=== PATIENT | female | born 1945 | race Caucasian/White ===

== ENCOUNTER 2023-06-12 23:59 | Emergency (ER) | payer OTHER, SELFPAY ==
--- NOTE | ~2023-06-12 | XR_ITS ---
EXAMINATION: XR CHEST CLINICAL INFORMATION: Cough. COMPARISON: None available. TECHNIQUE: Frontal view of the chest was obtained. FINDINGS: No significant abnormality is noted involving the heart, lungs, mediastinum, bony thorax or soft tissues. XR/XR chest 1V IMPRESSION: Unremarkable examination.
[2023-06-13] VITALS (8 sets, daily range): BP systolic 110–137; BP diastolic 39–70; PULSE 70–78; RESP 14–18; TEMP 36.5–37.1; O2SAT 96–98; BMI 51.0
--- NOTE | 2023-06-13 01:32 | ECG_ITS ---
Test Reason : FALL Blood Pressure : / mmHG Vent. Rate : 076 BPM Atrial Rate : 076 BPM P-R Int : 158 ms QRS Dur : 078 ms QT Int : 348 ms P-R-T Axes : 083 012 085 degrees QTc Int : 391 ms Normal sinus rhythm Low voltage QRS Nonspecific T wave abnormality Abnormal ECG When compared with ECG of 16-AUG-2008 07:30, Criteria for Inferior infarct are no longer Present Referred By: Bianca Aleman Electronically Signed By:SADAF MENJIVAR MD
--- NOTE | 2023-06-13 01:34 | ED_ITS ---
HPI - General Adult General Chief complaint: Fall Stated complaint: FALL, SOB Time Seen by Provider: 06/13/23 01:23 Source: patient Mode of arrival: ambulatory Limitations: no limitations History of Present Illness HPI narrative: Patient comes to the emergency room after sustaining a fall. Patient states that she was in her power chair, states that she accidentally slid off, landed on her buttocks. Patient states that she has no pain at all. Patient called 911 because she could not get up. Then she noted that she was a bit short of breath and decided to come to the hospital to get checked out. Patient did not hit her head, did not lose consciousness. Patient states that she does not take any blood thinners. Per patient, Patient has history of CHF and was discharged from [facility] a few days ago. Related Data Allergies Allergy/AdvReac Type Severity Reaction Status Date / Time hydrochlorothiazide Allergy Mild COUGH Unverified 06/13/23 00:20 [Hydrochlorothiazide] Sulfa (Sulfonamide Allergy Mild RASH Unverified 06/13/23 00:20 Antibiotics) lisinopril Allergy Unknown Cough Verified 06/13/23 00:20 Iodinated Contrast Media AdvReac Mild N/V Unverified 06/13/23 00:20 [IV Dye, Iodine Containing] warfarin Allergy Unknown Unknown Uncoded 06/13/23 00:20 Review of Systems 2 Review of Systems: Constitutional : No Weight loss, No Fever, No Chills, No Night Sweats, No Fatigue, No Malaise ENT/Mouth : No Hearing loss, No Ear Pain, No Nasal Congestion, No Sinus Pain, No Hoarseness, No sore throat, No Rhinorrhea, No Swallowing Difficulty Eyes: No Eye Pain, No Swelling, No Redness, No Foreign Body, No Discharge, No Vision Changes Cardiovascular : No Chest Pain, No SOB, No Dyspnea on Exertion, No Orthopnea, No Edema, No Palpitations Respiratory : No Cough, No Sputum, No Wheezing, No Smoke Exposure, complaining of Dyspnea Gastrointestinal : No Nausea, No Vomiting, No Diarrhea, No Constipation, No abdominal Pain, No Hematochezia, No Melena Genitourinary : no irregular bleeding, No Dysuria, No Urinary Frequency, No Hematuria, No Urinary Incontinence, No Urgency, No Flank Pain, No Urinary Flow Changes, No Hesitancy Musculoskeletal : No joint pain, No Myalgias, No Joint Swelling Skin : No Skin Lesions, No rash Neuro : No Weakness, No Numbness, No Paresthesias, No Loss of Consciousness, No Dizziness, No Headache Psych : No Anxiety/Panic, No Depression, No SI/HI/AH/VH, No Social Issues, Heme/Lymph: No Bruising, No Bleeding,No Lymphadenopathy Endocrine : No Polyuria, No Polydipsia, No Temperature Intolerance [facility] Past Medical History Medical History (Updated 06/13/23 @ 04:23 by Bianca Aleman MD) Type 2 diabetes mellitus DVT (deep venous thrombosis) Hypothyroidism Hypertension CHF (congestive heart failure) Social History Social History Smoked in Last 30 Days: No Use of substances other than those prescribed or required for medical reasons: No Advance Directives: No Advance Directives Information Provided: Yes Physical Exam ED Vital Signs: Vital Signs - 24 hr 06/13/23 00:21 06/13/23 01:03 06/13/23 02:00 Temperature 98.8 F 98.0 F Pulse Rate 78 72 76 Respiratory Rate 18 18 18 Blood Pressure 111/39 L 114/39 L 121/52 L Pulse Oximetry 98 98 98 Oxygen Delivery Method Room Air Room Air BMI result Body Mass Index 51.0 Const Other: Appearance: Alert. Oriented X3. No acute distress. Patient seems weak Eyes: Pupils equal, round and reactive to light. ENT: Pharynx normal. Neck: Normal inspection. Neck supple. No lymph nodes noted. No crepitus CVS: Normal heart rate and rhythm. Pulses normal. Normal S1 and S2 Respiratory: No respiratory distress. Breath sounds normal. No Wheezing. No rales Abdomen: Soft and nontender. No rigidity. No distention. Skin: Skin warm and dry. Normal skin color. Normal skin turgor. Extremities: Patient has +2 pitting edema bilaterally lower extremities Neuro: Oriented X 3. No motor deficit. No sensory deficit. Moving all extremities. No slurred speech. CN 2 through 12 grossly intact Psych: calm, cooperative, normal affect Course Course Course Narrative: -patient has no pain from today's fall. -patient states that she has no longer short of breath without any intervention. -all of patient's labs pending Medical Decision Making Medical Decision Making MDM Narrative: My interpretation of labs: Patient's white blood cell count 14.6. Patient has a UTI. Patient was given cefuroxime. Patient's vitals within normal limits, sepsis not suspected. -I was informed by the patient's nurse that it took 2 people to help her to get up from bed and get into the commode. Patient is too weak to do so. -Patient states that since she left [facility] on May 31, she has been feeling weak and gradually getting worse. -I requested records from [facility]. They sent record stating that the last time that the patient was seen with them was in 2020. However, patient has documents with her that she was actually seen this month at [facility]. She might have been seen in an outpatient basis? -patient would benefit from a case management/PT consult -cefuroxime b.i.d. has been ordered Differential Diagnosis Differential Diagnoses: The differential diagnosis associated with the presentation includes (CHF, viral syndrome, anxiety UTI) Admission/Observation Consideration of admission/observation: Escalation of care including admission/observation considered (Case management and physical therapy evaluation pending. Patient under physician observation) Lab Data MDM Lab Attestation statement: I reviewed the patient's lab results. 06/13/23 02:14 06/13/23 02:14 Labs: Lab Results 06/13/23 Range/Units 02:14 WBC 14.6 H (4.8-10.8) X10*3/uL RBC 3.11 L (4.20-5.50) X10*6/uL Hgb 9.3 L (12.0-16.0) g/dl Hct 29.8 L (37.0-47.0) % MCV 95.8 (80.0-98.0) fL MCH 29.9 (27.0-33.0) pg MCHC 31.2 (31.0-35.0) g/dl RDW 19.7 H (11.0-16.0) % Plt Count 177 (160-400) X10*3/uL MPV 8.7 L (9.4-12.3) fL Immature Gran % (Auto) 0.5 H (0.0-0.4) % Neut % (Auto) 79.9 H (45-73) % Lymph % (Auto) 11.2 L (20-40) % [place] % (Auto) 7.7 (2-11) % Eos % (Auto) 0.3 (0-4) % Baso % (Auto) 0.4 (0-2) % Lymph # (Auto) 1.6 (1.2-4.9) X10*3/uL [place] # (Auto) 1.1 (0.1-1.2) X10*3/uL Eos # (Auto) 0.0 (0.0-0.4) X10*3/uL Baso # (Auto) 0.1 (0.0-0.2) X10*3/uL Abs Immat Gran (auto) 0.08 H (0.00-0.03) X10*3/uL Absolute Neuts (auto) 11.7 H (2.0-8.3) x10*3/uL Absolute Nucleated RBC 0.000 (0.0-0.012) X10*3/uL Nucleated RBC % (auto) 0.0 (0.0-0.2) /100WBC Sodium 138 (135-145) mmol/L Potassium 5.1 (3.3-5.1) mmol/L Chloride 106 (96-108) mmol/L Carbon Dioxide 22 (22-29) mmol/L Anion Gap 15 (12-20) BUN 23 H (9-16) mg/dL Creatinine 1.01 (0.5-1.4) mg/dL Estim Creat Clear Calc 52.5 Estimated GFR 53 Random Glucose 178 H (60-115) mg/dL Calcium 10.3 H (8.4-10.2) mg/dL Total Bilirubin 1.3 H (0.0-1.0) mg/dL AST 12 (5-31) U/L ALT 9 (0-31) U/L Alkaline Phosphatase 91 (39-117) U/L B-Natriuretic Peptide 146 H (<100) pg/mL Total Protein 7.1 (6.5-8.0) g/dL Albumin 3.9 (3.5-5.0) g/dL Urine Color Yellow Urine Appearance Turbid Urine pH 5.5 (5.0-9.0) Ur Specific [place] 1.015 (1.005-1.025) Urine Protein Negative (Neg-Trace) mg/dL Urine Glucose (UA) >=1000 H (Negative) mg/dL Urine Ketones Negative (Negative) mg/dL Urine Blood Trace H (Negative) Urine Nitrite Positive H (Negative) Ur Leukocyte Esterase Moderate (2+) H (Negative) Urine RBC 0-2 (0-2) /HPF Urine WBC >50 H (0-5) /HPF Urine WBC Clumps Present Ur Squamous Epith Cells 0-2 (0-2) /HPF Urine Bacteria 4+ (None Seen) Hyaline Casts 0-2 (0-2) /LPF Urine Yeast Present Critical Care Time Critical Care Time Critical Care Time: Yes Total Critical Care Time: 60 Attestation: I have personally provided critical care time. Time includes review of lab data, radiology results, discussion with consultants, and monitoring for potential decompensation. Intervention performed as documented. Discharge Plan Discharge Clinical Impression: Acute UTI, Weakness Patient Disposition: Still a Patient
[2023-06-13 02:19] LABS: Basophils Absolute Auto 0.1 X10*3/uL (0.0-0.2); Basophils Percent Auto 0.4 % (0-2); Eosinophils Percent Auto 0.3 % (0-4); Hematocrit 29.8 % (37.0-47.0); Hemoglobin 9.3 g/dl (12.0-16.0); Imm Gran Abs Auto 0.08 X10*3/uL (0.00-0.03); Imm Gran Pct Auto 0.5 % (0.0-0.4); Lymphocytes Absolute Auto 1.6 X10*3/uL (1.2-4.9); Lymphocytes Percent Auto 11.2 % (20-40); MANUAL DIFF FLAG NO; Mean Corpuscular HGB Conc 31.2 g/dl (31.0-35.0); Mean Corpuscular Hemoglobin 29.9 pg (27.0-33.0); Mean Corpuscular Volume 95.8 fL (80.0-98.0); Mean Platelet Volume 8.7 fL (9.4-12.3); Monocytes Absolute Auto 1.1 X10*3/uL (0.1-1.2); Monocytes Percent Auto 7.7 % (2-11); Neutrophils Absolute Auto 11.7 x10*3/uL (2.0-8.3); Neutrophils Percent Auto 79.9 % (45-73); Platelet Count 177 X10*3/uL (160-400); Red Blood Count 3.11 X10*6/uL (4.20-5.50); Red Cell Distribution Width 19.7 % (11.0-16.0); White Blood Count 14.6 X10*3/uL (4.8-10.8)
[2023-06-13 02:22] LABS: Appearance Urine Turbid; Color Urine Yellow; Glucose Urine UA >=1000 mg/dL (Negative); Leukocyte Esterase Urine Moderate (2+) (Negative); Nitrite Urine Positive (Negative); PH 5.5 (5.0-9.0); Specific Gravity - Urine 1.015 (1.005-1.025); UMIC TRIGGER UACC YES; Urine Blood Trace (Negative); Urine Ketones Negative (Negative); Urine Protein Negative (Neg-Trace)
[2023-06-13 02:48] LABS: B Type Natriuretic Peptide 146 pg/mL (<100)
[2023-06-13 02:59] LABS: Alanine Aminotransferase 9 U/L (0-31); Albumin Level 3.9 g/dL (3.5-5.0); Alkaline Phosphatase 91 U/L (39-117); Anion Gap 15 (12-20); Aspartate Amino Transferase 12 U/L (5-31); Bilirubin Total 1.3 mg/dL (0.0-1.0); Blood Urea Nitrogen 23 mg/dL (9-16); Calcium 10.3 mg/dL (8.4-10.2); Carbon Dioxide 22 mmol/L (22-29); Chloride 106 mmol/L (96-108); Creatinine Clr Calc Pharmacy 52.5; Estimated Glomerular Filt Rate 53; Glucose Random 178 mg/dL (60-115); Potassium 5.1 mmol/L (3.3-5.1); Sodium 138 mmol/L (135-145); Total Protein 7.1 g/dL (6.5-8.0)
[2023-06-13 03:12] LABS: RBC Urine 0-2 /HPF (0-2); UACC Culture Trigger YES; WBC Urine >50 /HPF (0-5)
[2023-06-13 03:13] LABS: Bacteria Urine 4+ (None Seen); Hyaline Casts Urine 0-2 /LPF (0-2); Squamous Epithelial Cell Urine 0-2 /HPF (0-2); WBC Clumps Urine Present
[2023-06-13 10:11] LABS: COVID-19 Test Negative (Negative); IDNOW Serial# 152EDE1D
[2023-06-13] MEDS: cefuroxime axetiL 250 MG TABLET PO (12:15)
--- NOTE | 2023-06-13 12:18 | MHC.EDTECH ---
this tech removed purewick from pt, christiano care was done, brief was placed on pt, pt changed into her personal clothes to be ready for ambulance, rn aware.
--- NOTE | 2023-06-13 13:10 | MHC.CM.ED ---
Received case management consult overnight. Patient came to the ER due to a fall. Work up essentially negative. Physical therapy eval completed. Short term rehab is recommended. Met with patient in regards to discharge planning. Patient lives with 2 roommates, ambulates with a walker and is active with [facility] [id number] [facility]. PCP verified. Patient received 4 Moderna vaccines. Patient is declining STR at this time and feels she can safely return home with services. Maia ROME booked for 1230pm. Referral made to [address] [facility]. Patient, Toya GARCIA and Rosario BRYANT aware. Continue to monitor for d/c needs.
== END 2023-06-13 12:45 | disposition home or self-care (01) ==
PROVIDERS: Physician Assistant Medical; Emergency Provider Emergency Medicine; PCP Internal Medicine
DX: N39.0 Urinary tract infection, site not specified (principal); R53.1 Weakness; R26.2 Difficulty in walking, not elsewhere classified; R06.02 Shortness of breath; Z79.899 Other long term (current) drug therapy; Z11.52 Encounter for screening for COVID-19
CPT/HCPCS: 36415; 51702; 71045; 80053; 81001; 83880; 85025; 87086; 87088; 87186; 87635; 93005; 97162; 99285

== ENCOUNTER → 2023-06-13 01:32 | Outpatient (BNV) | payer OTHER, SELFPAY | PROVIDERS: Emergency Provider Emergency Medicine; PCP Internal Medicine; Visit Provider Internal Medicine Cardiovascular Disease | DX: R94.31 Abnormal electrocardiogram [ECG] [EKG] (principal) | CPT/HCPCS: 93010 ==

== ENCOUNTER 2023-06-17 06:47 | Inpatient (IN) | payer OTHER, SELFPAY ==
[2023-06-17] VITALS (12 sets, daily range): BP systolic 83–150; BP diastolic 34–100; PULSE 58–96; RESP 12–22; TEMP 36.2–36.6; O2SAT 95–100; BMI 53.7
--- NOTE | ~2023-06-17 | CT_ITS ---
EXAMINATION: CT ANGIOGRAM OF THE CHEST WITH AND WITHOUT CONTRAST (CT PULMONARY ANGIOGRAM FOR PE) CLINICAL INFORMATION: Bilateral DVT, dyspnea, lightheadedness. COMPARISON: Chest radiograph earlier today. TECHNIQUE: Prior to contrast administration, noncontrast localization images were obtained. Subsequently, multidetector volumetric imaging was performed from the thoracic inlet to below the diaphragms following the administration of 75 mL Omnipaque 350 intravenous contrast. No contrast reaction reported Sagittal, coronal, and MIP oblique sagittal reformatted images were obtained on the CT workstation, uploaded to PACS, and reviewed. This CT examination was performed using dose optimization techniques as appropriate, variously including the following: *Automated exposure control *Adjustment of mA and/or kV according to patient size (this includes techniques or standardized protocols for targeted exams where dose is matched to indication/reason for exam; i.e. extremities or head) *Use of iterative reconstruction technique Total exam dose-length product 439 mGy-cm FINDINGS: QUALITY OF STUDY/CONTRAST BOLUS: Suboptimal. PULMONARY ARTERIES: Evaluation is limited due to motion. No central pulmonary emboli. No large proximal segmental pulmonary emboli, otherwise evaluation is limited. Mildly enlarged main pulmonary trunk which could be seen with pulmonary hypertension. THORACIC AORTA: No aneurysm. LUNG: No focal consolidation or significant groundglass disease. Mild bibasilar subsegmental atelectasis. Evaluation of pulmonary nodules is limited due to motion, no pulmonary mass. PLEURA: No pleural effusion or pneumothorax. MEDIASTINUM: Mild cardiomegaly. No pericardial effusion. No lymphadenopathy. No evidence of septal bowing or right heart strain. CORONARY ARTERY CALCIFICATION: Coronary calcifications are seen. CHEST WALL/AXILLA: No axillary or internal mammary lymphadenopathy. OSSEOUS STRUCTURES: No acute or suspicious osseous abnormality. Thoracic spondylosis. UPPER ABDOMEN: Nonspecific gastric dilatation. No reflux of contrast into the hepatic veins to suggest elevated right heart pressures. CT/CT angio chest PE protocol IMPRESSION: 1. Limited evaluation secondary to motion. No central pulmonary emboli. No large proximal segmental pulmonary emboli, otherwise evaluation of segmental and subsegmental branches is essentially nondiagnostic. 2. Cardiomegaly with mildly enlarged pulmonary arteries suggesting pulmonary hypertension. 3. No focal consolidation or significant groundglass disease. 4. Nonspecific gastric distention, recommend correlation with postprandial state, gastroparesis and gastric outlet obstruction. VTE: Negative, although evaluation is limited as above.
--- NOTE | ~2023-06-17 | US_ITS ---
EXAMINATION: US VENOUS ULTRASOUND WITH DOPPLER LOWER EXTREMITY, BILATERAL CLINICAL INFORMATION: Swelling, TTP COMPARISON: None available. TECHNIQUE: Ultrasound of the deep veins is performed from the hip to the calf with compression sonography and color and pulse Doppler assessment. Spectral analysis with color-flow imaging is performed. FINDINGS: The exam is limited secondary to patient's body habitus and edema. RIGHT: There is thrombus visualized in the greater saphenous vein to the junction with the superficial femoral vein. Also visualized is partial thrombus in the proximal femoral vein upper. The mid and the distal proximal superficial femoral vein is not visualized. The popliteal vein is thrombosed with no flow seen as well. Right posterior tibial vein is patent. There are vein is limited in evaluation. There is no significant popliteal fossa cyst. LEFT: There is there is thrombus visualized in the common femoral, greater saphenous, superficial, profunda and popliteal veins. The distal superficial femoral vein and calf veins are not seen. There is no significant popliteal fossa cyst. If the patient's symptoms persist, followup ultrasound in 5 days 7 days might be of value to exclude proximal propagation from a non-visualized calf vein. US/US venous duplex LE BI IMPRESSION: Bilateral DVT worse in the left leg as described above.
--- NOTE | ~2023-06-17 | XR_ITS ---
EXAMINATION: XR CHEST CLINICAL INFORMATION: Shortness of breath. COMPARISON: CTA chest 06/17/2023. Chest radiograph 06/17/2023. TECHNIQUE: Frontal view of the chest was obtained. FINDINGS: Stable prominence of the cardiomediastinal silhouette. Low lung volumes. Overlying cardiomediastinal silhouette and prominent epicardial fat pad limits evaluation of the left lower lung. No discrete consolidation. No pleural effusion or pneumothorax. No acute osseous findings. XR/XR chest 1V IMPRESSION: No acute cardiopulmonary findings with the caveat that evaluation of the left lower lobe is somewhat limited due to overlying prominent epicardial fat pads and cardiomediastinal silhouette. Correlation with lateral radiographic view of the chest could be obtained as clinically warranted.
--- NOTE | ~2023-06-17 | XR_ITS ---
EXAMINATION: XR CHEST CLINICAL INFORMATION: Chest pain. COMPARISON: None available. TECHNIQUE: Frontal view of the chest was obtained. FINDINGS: No significant abnormality is noted involving the heart, lungs, mediastinum, bony thorax or soft tissues. XR/XR chest 1V IMPRESSION: Unremarkable chest examination.
[2023-06-17 07:24] LABS: Glucose, Whole Blood 59 mg/dL (60-115)
--- NOTE | 2023-06-17 07:35 | ED_ITS ---
HPI - General Adult General Chief complaint: General Medical Stated complaint: hypoglycemia Time Seen by Provider: 06/17/23 07:27 Source: patient Limitations: no limitations History of Present Illness HPI narrative: This is a 77 years old female with history of diabetes, history of DVT in the past, recently seen in this emergency department for UTI 06/13 discharged on cefuroxime presented to the emergency department with a hypoglycemic episode blood sugar in the field was in the 50s she was given oral dextrose. Onset (ago): hour(s) (2) Radiation: non-radiation Severity: mild Relieving factors: none Exacerbating factors: none Related Data Home Medications Medication Instructions Recorded Confirmed acetaminophen 500 mg tablet 500 mg PO BID PRN Pain, Mild 06/17/23 06/17/23 ammonium lactate 12 % lotion 1 appl topical TID 06/17/23 06/17/23 atorvastatin 40 mg tablet 40 mg PO DAILY 06/17/23 06/17/23 carvedilol 25 mg tablet 25 mg PO BID 06/17/23 06/17/23 cefuroxime axetil 250 mg tablet 250 mg PO BID 06/17/23 06/17/23 empagliflozin 10 mg tablet 10 mg PO DAILY 06/17/23 06/17/23 (Jardiance) furosemide 20 mg tablet 20 mg PO DAILY 06/17/23 06/17/23 gabapentin 100 mg capsule 200 mg PO BID 06/17/23 06/17/23 glimepiride 2 mg tablet 2 mg PO DAILY 06/17/23 06/17/23 levothyroxine 75 mcg tablet 75 mcg PO DAILY@0530 06/17/23 06/17/23 losartan 25 mg tablet 25 mg PO DAILY 06/17/23 06/17/23 nystatin 100,000 unit/gram topical 400,000 unit topical QID 06/17/23 06/17/23 powder silver sulfadiazine 1 % topical 1 appl topical BID 06/17/23 06/17/23 cream (SSD) Allergies Allergy/AdvReac Type Severity Reaction Status Date / Time hydrochlorothiazide Allergy Mild COUGH Verified 06/13/23 04:28 [Hydrochlorothiazide] Sulfa (Sulfonamide Allergy Mild RASH Verified 06/13/23 04:28 Antibiotics) lisinopril Allergy Unknown Cough Verified 06/13/23 04:28 Iodinated Contrast Media AdvReac Mild N/V Verified 06/13/23 04:28 [IV Dye, Iodine Containing] warfarin Allergy Unknown Unknown Uncoded 06/13/23 00:20 Review of Systems 2 ENT: Reports system reviewed and no additional complaints, except as documented Cardiovascular: Cardiovascular: Reports no additional cardiovascular complaints Neurologic: Reports system reviewed and no additional complaints, except as documented [facility] Past Medical History Attestation statement: The following information was validated with the patient. Source: unable to obtain Medical History Type 2 diabetes mellitus DVT (deep venous thrombosis) Hypothyroidism Hypertension CHF (congestive heart failure) Social History Social History Patient Tobacco Use Status: Never used Tobacco Smoked in Last 30 Days: No Use of substances other than those prescribed or required for medical reasons: No Advance Directives: Yes Advance Directives Information Provided: No Advance Directives on File: No Nutrition Risks: No Nutritional Risk Physical Exam ED Vital Signs: Vital Signs - 24 hr 06/17/23 07:20 06/17/23 08:41 06/17/23 10:05 Temperature 97.5 F 97.2 F Pulse Rate 58 63 66 Respiratory Rate 16 12 18 Blood Pressure 83/34 L 96/39 L 94/40 L Pulse Oximetry 98 100 100 Oxygen Delivery Method Room Air Room Air Room Air 06/17/23 11:50 06/17/23 12:20 06/17/23 13:02 Temperature Pulse Rate 63 69 70 Respiratory Rate 13 17 18 Blood Pressure 98/39 L 103/47 L 92/35 L Pulse Oximetry 100 100 98 Oxygen Delivery Method Room Air Room Air BMI result Body Mass Index 53.7 Const General: cooperative, no acute distress and well developed Nutritional Appearance: obese Orientation/consciousness: patient oriented x3 HENMT Head: Yes normal to inspection General nose exam: Normal external nose present Face and sinus: Yes normal facial exam Mouth: Normal oral and palatal mucosa present Neck Neck: Yes normal visual inspection and Yes full ROM Chest Chest palpation & inspection: normal inspection of the chest Resp Effort & Inspection: normal respiratory effort Auscultation: clear to auscultation bilaterally Cardio Jugular venous distension: no JVD Rate: regular rate Rhythm: regular rhythm GI Inspection: Yes normal to inspection Palpation (GI): Soft to palpation, not firm, nontender and no guarding Auscultation: normal bowel sounds Skin General skin exam: no rashes or lesions noted and elasticity normal Lesions: no lesions Rashes: no rashes Neuro General: patient oriented x3 Course Reevaluation(s) Reevaluation #1: Blood pressure noted however I do not think a she a sepsis this patient she has a normal lactic acid she has no fever the urine actually is better today than before she has been having some diarrhea that could explain the low BP Time: 11:34 Medications Administered Discontinued Medications Generic Name Dose Route Start Last Admin Trade Name Freq PRN Reason Stop Dose Admin Hydrocortisone Sodium Succinate 200 mg 06/17/23 15:07 06/17/23 15:34 Hydrocortisone Sod Succ/Pf 100 Mg Vial IVPUSH 06/17/23 15:08 200 mg ONCE ONE Administration Sodium Chloride 1,000 mls @ 999 mls/hr 06/17/23 07:30 06/17/23 08:54 Ns IVCONT 06/17/23 08:30 Infused .Q1H1M SUSAN Infusion Sodium Chloride 1,000 mls @ 999 mls/hr 06/17/23 08:30 06/17/23 10:27 Ns IVCONT 06/17/23 09:30 Infused .Q1H1M SUSAN Infusion Sodium Chloride 1,000 mls @ 500 mls/hr 06/17/23 11:30 06/17/23 11:54 Ns IVCONT 06/17/23 13:29 500 mls/hr .Q2H SUSAN Administration Albumin Human 100 mls @ 125 mls/hr 06/17/23 13:15 06/17/23 15:34 [place]bum[place] 25 % IV 06/17/23 15:02 125 mls/hr Q1H SUSAN Administration Medical Decision Making Medical Decision Making [facility] Narrative: Patient presented with hyperglycemia episode, found to be hypotensive at arrival will obtain labs will administer fluid bolus Differential Diagnosis Differential Diagnoses: The differential diagnosis associated with the presentation includes Dehydration/see me/sepsis (which is unlikely given the fact the patient has no fever) Admission/Observation Consideration of admission/observation: Escalation of care including admission/observation considered Consult Healthcare Provider Management of the patient was discussed with: Hospitalist Lab Data MDM Lab Attestation statement: I reviewed the patient's lab results. 06/17/23 12:45 06/17/23 07:38 Labs: Lab Results 06/17/23 06/17/23 06/17/23 Range/Units 07:21 07:38 07:48 WBC 12.0 H (4.8-10.8) X10*3/uL RBC 2.94 L (4.20-5.50) X10*6/uL Hgb 8.5 L (12.0-16.0) g/dl Hct 27.3 L (37.0-47.0) % MCV 92.9 (80.0-98.0) fL MCH 28.9 (27.0-33.0) pg MCHC 31.1 (31.0-35.0) g/dl RDW 18.9 H (11.0-16.0) % Plt Count 246 D (160-400) X10*3/uL MPV 9.1 L (9.4-12.3) fL Immature Gran % (Auto) 0.7 H (0.0-0.4) % Neut % (Auto) 77.2 H (45-73) % Lymph % (Auto) 11.7 L (20-40) % [place] % (Auto) 9.1 (2-11) % Eos % (Auto) 0.9 (0-4) % Baso % (Auto) 0.4 (0-2) % Lymph # (Auto) 1.4 (1.2-4.9) X10*3/uL [place] # (Auto) 1.1 (0.1-1.2) X10*3/uL Eos # (Auto) 0.1 (0.0-0.4) X10*3/uL Baso # (Auto) 0.1 (0.0-0.2) X10*3/uL Abs Immat Gran (auto) 0.08 H (0.00-0.03) X10*3/uL Absolute Neuts (auto) 9.3 H (2.0-8.3) x10*3/uL Absolute Nucleated RBC 0.000 (0.0-0.012) X10*3/uL Nucleated RBC % (auto) 0.0 (0.0-0.2) /100WBC PT 14.2 H (11.1-13.3) SEC INR 1.2 H (0.9-1.1) aPTT Heparin Protocol (53-77.9) SEC Sodium 133 L (135-145) mmol/L Potassium 4.7 (3.3-5.1) mmol/L Chloride 105 (96-108) mmol/L Carbon Dioxide 23 (22-29) mmol/L Anion Gap 10 L (12-20) BUN 37 H (9-16) mg/dL Creatinine 1.40 (0.5-1.4) mg/dL Estim Creat Clear Calc 40.3 Estimated GFR 36 POC Glucose 59 L* 81 (60-115) mg/dL Random Glucose 67 (60-115) mg/dL Lactic Acid 1.0 (0.5-2.0) mmol/L Calcium 9.7 (8.4-10.2) mg/dL Total Bilirubin 0.7 (0.0-1.0) mg/dL AST 56 H (5-31) U/L ALT 32 H (0-31) U/L Alkaline Phosphatase 103 (39-117) U/L Troponin I High Sens < 2.7 (<3.5-17.0) ng/L B-Natriuretic Peptide (<100) pg/mL Total Protein 6.3 L (6.5-8.0) g/dL Albumin 2.9 L (3.5-5.0) g/dL Urine Color Urine Appearance Urine pH (5.0-9.0) Ur Specific [place] (1.005-1.025) Urine Protein (Neg-Trace) mg/dL Urine Glucose (UA) (Negative) mg/dL Urine Ketones (Negative) mg/dL Urine Blood (Negative) Urine Nitrite (Negative) Ur Leukocyte Esterase (Negative) Urine RBC (0-2) /HPF Urine WBC (0-5) /HPF Ur Squamous Epith Cells (0-2) /HPF Urine Bacteria (None Seen) Hyaline Casts (0-2) /LPF Urine Yeast Stool Occult Blood (NEGATIVE) C. difficile Tox B Gene (Negative) 06/17/23 06/17/23 06/17/23 Range/Units 09:17 09:21 09:25 WBC (4.8-10.8) X10*3/uL RBC (4.20-5.50) X10*6/uL Hgb (12.0-16.0) g/dl Hct (37.0-47.0) % MCV (80.0-98.0) fL MCH (27.0-33.0) pg MCHC (31.0-35.0) g/dl RDW (11.0-16.0) % Plt Count (160-400) X10*3/uL MPV (9.4-12.3) fL Immature Gran % (Auto) (0.0-0.4) % Neut % (Auto) (45-73) % Lymph % (Auto) (20-40) % [place] % (Auto) (2-11) % Eos % (Auto) (0-4) % Baso % (Auto) (0-2) % Lymph # (Auto) (1.2-4.9) X10*3/uL [place] # (Auto) (0.1-1.2) X10*3/uL Eos # (Auto) (0.0-0.4) X10*3/uL Baso # (Auto) (0.0-0.2) X10*3/uL Abs Immat Gran (auto) (0.00-0.03) X10*3/uL Absolute Neuts (auto) (2.0-8.3) x10*3/uL Absolute Nucleated RBC (0.0-0.012) X10*3/uL Nucleated RBC % (auto) (0.0-0.2) /100WBC PT (11.1-13.3) SEC INR (0.9-1.1) aPTT Heparin Protocol (53-77.9) SEC Sodium (135-145) mmol/L Potassium (3.3-5.1) mmol/L Chloride (96-108) mmol/L Carbon Dioxide (22-29) mmol/L Anion Gap (12-20) BUN (9-16) mg/dL Creatinine (0.5-1.4) mg/dL Estim Creat Clear Calc Estimated GFR POC Glucose (60-115) mg/dL Random Glucose (60-115) mg/dL Lactic Acid (0.5-2.0) mmol/L Calcium (8.4-10.2) mg/dL Total Bilirubin (0.0-1.0) mg/dL AST (5-31) U/L ALT (0-31) U/L Alkaline Phosphatase (39-117) U/L Troponin I High Sens (<3.5-17.0) ng/L B-Natriuretic Peptide (<100) pg/mL Total Protein (6.5-8.0) g/dL Albumin (3.5-5.0) g/dL Urine Color Yellow Urine Appearance Clear Urine pH 5.0 (5.0-9.0) Ur Specific [place] 1.015 (1.005-1.025) Urine Protein Negative (Neg-Trace) mg/dL Urine Glucose (UA) 500 H (Negative) mg/dL Urine Ketones Negative (Negative) mg/dL Urine Blood Negative (Negative) Urine Nitrite Negative (Negative) Ur Leukocyte Esterase Negative (Negative) Urine RBC 0-2 (0-2) /HPF Urine WBC 0-5 (0-5) /HPF Ur Squamous Epith Cells 0-2 (0-2) /HPF Urine Bacteria None Seen (None Seen) Hyaline Casts 3-5 (0-2) /LPF Urine Yeast Present Stool Occult Blood NEGATIVE (NEGATIVE) C. difficile Tox B Gene NEGATIVE (Negative) 06/17/23 06/17/23 06/17/23 Range/Units 10:06 12:45 12:51 WBC 12.3 H (4.8-10.8) X10*3/uL RBC 2.88 L (4.20-5.50) X10*6/uL Hgb 8.3 L (12.0-16.0) g/dl Hct 26.8 L (37.0-47.0) % MCV 93.1 (80.0-98.0) fL MCH 28.8 (27.0-33.0) pg MCHC 31.0 (31.0-35.0) g/dl RDW 18.8 H (11.0-16.0) % Plt Count 226 (160-400) X10*3/uL MPV 9.4 (9.4-12.3) fL Immature Gran % (Auto) 0.7 H (0.0-0.4) % Neut % (Auto) 74.0 H (45-73) % Lymph % (Auto) 14.0 L (20-40) % [place] % (Auto) 9.9 (2-11) % Eos % (Auto) 1.1 (0-4) % Baso % (Auto) 0.3 (0-2) % Lymph # (Auto) 1.7 (1.2-4.9) X10*3/uL [place] # (Auto) 1.2 (0.1-1.2) X10*3/uL Eos # (Auto) 0.1 (0.0-0.4) X10*3/uL Baso # (Auto) 0.0 (0.0-0.2) X10*3/uL Abs Immat Gran (auto) 0.08 H (0.00-0.03) X10*3/uL Absolute Neuts (auto) 9.1 H (2.0-8.3) x10*3/uL Absolute Nucleated RBC 0.000 (0.0-0.012) X10*3/uL Nucleated RBC % (auto) 0.0 (0.0-0.2) /100WBC PT (11.1-13.3) SEC INR (0.9-1.1) aPTT Heparin Protocol (53-77.9) SEC Sodium (135-145) mmol/L Potassium (3.3-5.1) mmol/L Chloride (96-108) mmol/L Carbon Dioxide (22-29) mmol/L Anion Gap (12-20) BUN (9-16) mg/dL Creatinine (0.5-1.4) mg/dL Estim Creat Clear Calc Estimated GFR POC Glucose 113 82 (60-115) mg/dL Random Glucose (60-115) mg/dL Lactic Acid (0.5-2.0) mmol/L Calcium (8.4-10.2) mg/dL Total Bilirubin (0.0-1.0) mg/dL AST (5-31) U/L ALT (0-31) U/L Alkaline Phosphatase (39-117) U/L Troponin I High Sens (<3.5-17.0) ng/L B-Natriuretic Peptide 119 H (<100) pg/mL Total Protein (6.5-8.0) g/dL Albumin (3.5-5.0) g/dL Urine Color Urine Appearance Urine pH (5.0-9.0) Ur Specific [place] (1.005-1.025) Urine Protein (Neg-Trace) mg/dL Urine Glucose (UA) (Negative) mg/dL Urine Ketones (Negative) mg/dL Urine Blood (Negative) Urine Nitrite (Negative) Ur Leukocyte Esterase (Negative) Urine RBC (0-2) /HPF Urine WBC (0-5) /HPF Ur Squamous Epith Cells (0-2) /HPF Urine Bacteria (None Seen) Hyaline Casts (0-2) /LPF Urine Yeast Stool Occult Blood (NEGATIVE) C. difficile Tox B Gene (Negative) 06/17/23 Range/Units 14:54 WBC (4.8-10.8) X10*3/uL RBC (4.20-5.50) X10*6/uL Hgb (12.0-16.0) g/dl Hct (37.0-47.0) % MCV (80.0-98.0) fL MCH (27.0-33.0) pg MCHC (31.0-35.0) g/dl RDW (11.0-16.0) % Plt Count (160-400) X10*3/uL MPV (9.4-12.3) fL Immature Gran % (Auto) (0.0-0.4) % Neut % (Auto) (45-73) % Lymph % (Auto) (20-40) % [place] % (Auto) (2-11) % Eos % (Auto) (0-4) % Baso % (Auto) (0-2) % Lymph # (Auto) (1.2-4.9) X10*3/uL [place] # (Auto) (0.1-1.2) X10*3/uL Eos # (Auto) (0.0-0.4) X10*3/uL Baso # (Auto) (0.0-0.2) X10*3/uL Abs Immat Gran (auto) (0.00-0.03) X10*3/uL Absolute Neuts (auto) (2.0-8.3) x10*3/uL Absolute Nucleated RBC (0.0-0.012) X10*3/uL Nucleated RBC % (auto) (0.0-0.2) /100WBC PT 13.5 H (11.1-13.3) SEC INR 1.1 (0.9-1.1) aPTT Heparin Protocol 29.7 L (53-77.9) SEC Sodium (135-145) mmol/L Potassium (3.3-5.1) mmol/L Chloride (96-108) mmol/L Carbon Dioxide (22-29) mmol/L Anion Gap (12-20) BUN (9-16) mg/dL Creatinine (0.5-1.4) mg/dL Estim Creat Clear Calc Estimated GFR POC Glucose (60-115) mg/dL Random Glucose (60-115) mg/dL Lactic Acid (0.5-2.0) mmol/L Calcium (8.4-10.2) mg/dL Total Bilirubin (0.0-1.0) mg/dL AST (5-31) U/L ALT (0-31) U/L Alkaline Phosphatase (39-117) U/L Troponin I High Sens (<3.5-17.0) ng/L B-Natriuretic Peptide (<100) pg/mL Total Protein (6.5-8.0) g/dL Albumin (3.5-5.0) g/dL Urine Color Urine Appearance Urine pH (5.0-9.0) Ur Specific [place] (1.005-1.025) Urine Protein (Neg-Trace) mg/dL Urine Glucose (UA) (Negative) mg/dL Urine Ketones (Negative) mg/dL Urine Blood (Negative) Urine Nitrite (Negative) Ur Leukocyte Esterase (Negative) Urine RBC (0-2) /HPF Urine WBC (0-5) /HPF Ur Squamous Epith Cells (0-2) /HPF Urine Bacteria (None Seen) Hyaline Casts (0-2) /LPF Urine Yeast Stool Occult Blood (NEGATIVE) C. difficile Tox B Gene (Negative) Independent Interpretation I performed an independent interpretation of an: EKG Critical Care Time Critical Care Time Critical Care Time: Yes Total Critical Care Time: 60 Attestation: hypotensions multiple fluids bolus,hypoglycemia Discharge Plan Discharge Clinical Impression: Hypoglycemia Hypotension Qualifiers: Hypotension type: unspecified hypotension type Qualified Code(s): I95.9 - Hypotension, unspecified Patient Disposition: Admitted As Inpatient
[2023-06-17] MEDS: 0.9 % Sodium Chloride 1,000 ML 999 ML IVCONT ×2 (07:38→08:54)
[2023-06-17 07:46] LABS: MANUAL DIFF FLAG NO
[2023-06-17 07:49] LABS: Basophils Absolute Auto 0.1 X10*3/uL (0.0-0.2); Basophils Percent Auto 0.4 % (0-2); Eosinophils Absolute Auto 0.1 X10*3/uL (0.0-0.4); Eosinophils Percent Auto 0.9 % (0-4); Hematocrit 27.3 % (37.0-47.0); Hemoglobin 8.5 g/dl (12.0-16.0); Imm Gran Abs Auto 0.08 X10*3/uL (0.00-0.03); Imm Gran Pct Auto 0.7 % (0.0-0.4); Lymphocytes Absolute Auto 1.4 X10*3/uL (1.2-4.9); Lymphocytes Percent Auto 11.7 % (20-40); Mean Corpuscular HGB Conc 31.1 g/dl (31.0-35.0); Mean Corpuscular Hemoglobin 28.9 pg (27.0-33.0); Mean Corpuscular Volume 92.9 fL (80.0-98.0); Mean Platelet Volume 9.1 fL (9.4-12.3); Monocytes Absolute Auto 1.1 X10*3/uL (0.1-1.2); Monocytes Percent Auto 9.1 % (2-11); Neutrophils Absolute Auto 9.3 x10*3/uL (2.0-8.3); Neutrophils Percent Auto 77.2 % (45-73); Platelet Count 246 X10*3/uL (160-400); Red Blood Count 2.94 X10*6/uL (4.20-5.50); Red Cell Distribution Width 18.9 % (11.0-16.0)
[2023-06-17 07:51] LABS: Glucose, Whole Blood 81 mg/dL (60-115)
[2023-06-17 07:54] LABS: INTERNATIONAL NORM RATIO 1.2 (0.9-1.1); Prothrombin Time 14.2 SEC (11.1-13.3)
[2023-06-17 08:02] LABS: Alanine Aminotransferase 32 U/L (0-31); Albumin Level 2.9 g/dL (3.5-5.0); Alkaline Phosphatase 103 U/L (39-117); Anion Gap 10 (12-20); Aspartate Amino Transferase 56 U/L (5-31); Bilirubin Total 0.7 mg/dL (0.0-1.0); Blood Urea Nitrogen 37 mg/dL (9-16); Calcium 9.7 mg/dL (8.4-10.2); Carbon Dioxide 23 mmol/L (22-29); Chloride 105 mmol/L (96-108); Creatinine Clr Calc Pharmacy 40.3; Estimated Glomerular Filt Rate 36; Glucose Random 67 mg/dL (60-115); Potassium 4.7 mmol/L (3.3-5.1); Sodium 133 mmol/L (135-145); Total Protein 6.3 g/dL (6.5-8.0)
[2023-06-17 08:09] LABS: Troponin-I High Sensitivity < 2.7 ng/L (<3.5-17.0)
[2023-06-17 09:31] LABS: Appearance Urine Clear; Color Urine Yellow; Glucose Urine UA 500 mg/dL (Negative); Leukocyte Esterase Urine Negative (Negative); Nitrite Urine Negative (Negative); Specific Gravity - Urine 1.015 (1.005-1.025); Urine Blood Negative (Negative); Urine Ketones Negative (Negative); Urine Protein Negative (Neg-Trace)
[2023-06-17 09:36] LABS: OBS Int Ctl Valid YES; OBS1 NEGATIVE (NEGATIVE)
[2023-06-17 09:43] LABS: Bacteria Urine None Seen (None Seen); RBC Urine 0-2 /HPF (0-2); Squamous Epithelial Cell Urine 0-2 /HPF (0-2); WBC Urine 0-5 /HPF (0-5)
[2023-06-17 10:14] LABS: Glucose, Whole Blood 113 mg/dL (60-115)
[2023-06-17 10:55] LABS: CDiff Gene PCR NEGATIVE (Negative)
--- NOTE | 2023-06-17 11:32 | ECG_ITS ---
Test Reason : CHEST PAIN Blood Pressure : / mmHG Vent. Rate : 071 BPM Atrial Rate : 071 BPM P-R Int : 168 ms QRS Dur : 068 ms QT Int : 362 ms P-R-T Axes : 077 010 066 degrees QTc Int : 393 ms Artifact in tracing Normal sinus rhythm Low voltage QRS Nonspecific ST and T wave abnormality Borderline ECG When compared with ECG of 13-JUN-2023 02:26, No significant changes seen Referred By: Danny Figueroa Electronically Signed By:WAYNE SHEPPARD
[2023-06-17] MEDS: 0.9 % Sodium Chloride 1,000 ML 500 ML IVCONT (11:54)
--- NOTE | 2023-06-17 12:35 | PHA.MEDREC ---
Pharmacy Consult ? Medication Reconciliation Pharmacy has completed the medication reconciliation. Patient was a good historian. OF NOTE: her lasix and glimepiride are filled as BID but she only takes them once in the morning. Patient also stated she has been stopped on metformin and Xarelto
[2023-06-17 12:57] LABS: Glucose, Whole Blood 82 mg/dL (60-115)
--- NOTE | 2023-06-17 13:01 | PC.NURSE ---
u/s at bedside to complete venous duplex
[2023-06-17 13:04] LABS: MANUAL DIFF FLAG NO
[2023-06-17 13:05] LABS: Basophils Percent Auto 0.3 % (0-2); Eosinophils Absolute Auto 0.1 X10*3/uL (0.0-0.4); Eosinophils Percent Auto 1.1 % (0-4); Hematocrit 26.8 % (37.0-47.0); Hemoglobin 8.3 g/dl (12.0-16.0); Imm Gran Abs Auto 0.08 X10*3/uL (0.00-0.03); Imm Gran Pct Auto 0.7 % (0.0-0.4); Lymphocytes Absolute Auto 1.7 X10*3/uL (1.2-4.9); Mean Corpuscular Hemoglobin 28.8 pg (27.0-33.0); Mean Corpuscular Volume 93.1 fL (80.0-98.0); Mean Platelet Volume 9.4 fL (9.4-12.3); Monocytes Absolute Auto 1.2 X10*3/uL (0.1-1.2); Monocytes Percent Auto 9.9 % (2-11); Neutrophils Absolute Auto 9.1 x10*3/uL (2.0-8.3); Platelet Count 226 X10*3/uL (160-400); Red Blood Count 2.88 X10*6/uL (4.20-5.50); Red Cell Distribution Width 18.8 % (11.0-16.0); White Blood Count 12.3 X10*3/uL (4.8-10.8)
[2023-06-17 13:24] LABS: B Type Natriuretic Peptide 119 pg/mL (<100)
--- NOTE | 2023-06-17 14:01 | P.HPHOSP_ITS ---
History of Present Illness Date of Service: 06/17/23 Attending physician on admission: Heriberto Arango Chief Complaint: hypoglycemia 77 year old female with history non insulin dependent type 2 diabetes, htn, unspecified CHF, hx dvt (s/p IVC filter previously on xarelto dc'd 3 weeks ago d/t gi bleed), hypothyroidism presented to the ED earlier today for evaluation of hypoglyemia. Was seen in our ED on 06/13 diagnosed with UTI and prescribed cefuroxime (UC grew ecoli sensitive to ctx). States last A1c was 6.1% and had glucose of 46 this am, given oral dextrose by EMS and transferred to ED. She reports was hospitalized at [facility] about 3 weeks ago with LGIB, required 8 units prbc transfusion, and underwent colonoscopy. Pt reports AVM found. Records requested but unavailable at time of exam. No further GI bleeding per patient since discharge. Did have recurrence of diarrhea x4 this morning while in ED. Reports dyspnea sitting up and with exertion, but no orthopnea. Also reporting lightheadedness and mild chest discomfort, but no palpitations. In ED, initially hypotensive and bp remains soft despite 2.5L IV NS with bp on admission 92/35. There is a leukocytosis 12.3, H/H 8.3/26.8%. Creat 1.4, baseline 1.0. BUN 37, sodium 131 lytes otherwise normal. AST 56, ALT 32. Trop below detectable limites, BNP 119. albumin 2.9. UA unremarkable. Stool occult blood negative. Cdiff negative. CXR unremarkable. Venous duplex pending. EKF shows NSR, rate [address]/twave abn, no amrcos/depression. Review of Systems 2 Review of Systems: General: No fevers, malaise, unintentional weight loss HEENT: No blurred vision, diplopia. No sore throat, nasal congestion, rhinorrhea, sinus pain, ear pain Cardiovascular: +chest pain. No palpitations, or leg edema Respiratory: +dyspnea. No wheezing, cough GI: No abdominal pain, nausea, vomiting, diarrhea, constipation, melena, hematochezia : No dysuria, hematuria, increased urinary frequency, decreased urinary output MSK: No myalgia, back pain Neuro: No headaches, weakness, paresthesias Skin: No rashes or lesions [facility] Medical History Type 2 diabetes mellitus DVT (deep venous thrombosis) Hypothyroidism Hypertension CHF (congestive heart failure) Social History Patient Tobacco Use Status: Never used Tobacco Smoked in Last 30 Days: No Use of substances other than those prescribed or required for medical reasons: No Advance Directives: Yes Advance Directives Information Provided: No Advance Directives on File: No Nutrition Risks: No Nutritional Risk Meds Allergies Allergy/AdvReac Type Severity Reaction Status Date / Time hydrochlorothiazide Allergy Mild COUGH Verified 06/13/23 04:28 [Hydrochlorothiazide] Sulfa (Sulfonamide Allergy Mild RASH Verified 06/13/23 04:28 Antibiotics) lisinopril Allergy Unknown Cough Verified 06/13/23 04:28 Iodinated Contrast Media AdvReac Mild N/V Verified 06/13/23 04:28 [IV Dye, Iodine Containing] warfarin Allergy Unknown Unknown Uncoded 06/13/23 00:20 Active Medications: Current Medications Acetaminophen (Acetaminophen 325 Mg Tablet) 650 mg PO Q6H PRN PRN Reason: Pain, Mild (Pain Scale 1-3) Dextrose (Dextrose 50 % 25 Gm/50 Ml Syringe) 25 gm IVPUSH Q15M PRN; Protocol PRN Reason: per Hypoglycemia Standing Ord. Enoxaparin Sodium (Enoxaparin Sodium 40 Mg/0.4 Ml Syringe) 40 mg SUBCUT Q24H [facility] Glucose (Glucose Gel 15 Gm Gel..Gram.) 15 gm PO Q15M PRN; Protocol PRN Reason: per Hypoglycemia Standing Ord. Albumin Human (Kedbumin 25 %) 100 mls @ 125 mls/hr IV Q1H [facility] Stop: 06/17/23 15:02 Insulin Human Lispro (Insulin Lispro 100 Unit/Ml 3 Ml Vial) 0 unit SUBCUT QIDACHS [facility]; Protocol Ondansetron HCl (Ondansetron Hcl 4 Mg/2 Ml Vial) 4 mg IVPUSH Q8H PRN PRN Reason: Nausea and Vomiting Senna (Sennosides 8.6 Mg Tablet) 17.2 mg PO BEDTIME PRN PRN Reason: Constipation Sodium Chloride (0.9 % Sodium Chloride Flush 3 Ml Syringe) 3 ml IVFLUSH QSHIFT [facility] Home Medications Medication Instructions Recorded Confirmed Last Taken Type acetaminophen 500 mg tablet 500 mg PO BID PRN Pain, Mild 06/17/23 06/17/23 Unknown History ammonium lactate 12 % lotion 1 appl topical TID 06/17/23 06/17/23 Unknown History atorvastatin 40 mg tablet 40 mg PO DAILY 06/17/23 06/17/23 Unknown History carvedilol 25 mg tablet 25 mg PO BID 06/17/23 06/17/23 Unknown History cefuroxime axetil 250 mg tablet 250 mg PO BID 06/17/23 06/17/23 Unknown History empagliflozin 10 mg tablet 10 mg PO DAILY 06/17/23 06/17/23 Unknown History (Jardiance) furosemide 20 mg tablet 20 mg PO DAILY 06/17/23 06/17/23 Unknown History gabapentin 100 mg capsule 200 mg PO BID 06/17/23 06/17/23 Unknown History glimepiride 2 mg tablet 2 mg PO DAILY 06/17/23 06/17/23 Unknown History levothyroxine 75 mcg tablet 75 mcg PO DAILY@0530 06/17/23 06/17/23 Unknown History losartan 25 mg tablet 25 mg PO DAILY 06/17/23 06/17/23 Unknown History nystatin 100,000 unit/gram topical 400,000 unit topical QID 06/17/23 06/17/23 Unknown History powder silver sulfadiazine 1 % topical 1 appl topical BID 06/17/23 06/17/23 Unknown History cream (SSD) Physical Exam 2 Vital Signs and Narrative: Vital Signs: Last Vital Signs Temp 97.2 F 06/17/23 08:41 Pulse 70 06/17/23 13:02 Resp 18 06/17/23 13:02 BP 92/35 L 06/17/23 13:02 Pulse Ox 98 06/17/23 13:02 O2 Del Method Room Air 06/17/23 12:20 BMI result Body Mass Index 53.7 Constitutional - Awake and Alert, No apparent distress Eyes - PERRLA, EOMI Cardiovascular - S1S2, RRR, 2+ ble edema Respiratory - Normal lung expansion, Normal respiratory effort, No respiratory distress, CTA bilaterally Gastrointestinal - NT / ND; +BS; No rebound or guarding Extremities - bilateral calf swelling with mild erythema posterior rle and 2+ edema Skin - Warm/Dry Neurological - Alert & oriented x3 Psychological - Appropriate affect Results Labs 06/17/23 12:45 06/17/23 07:38 Labs: Laboratory Results - last 24 hr 06/17/23 06/17/23 06/17/23 07:21 07:38 07:48 MCV 92.9 MCH 28.9 MCHC 31.1 RDW 18.9 H Plt Count 246 D MPV 9.1 L Immature Gran % (Auto) 0.7 H Neut % (Auto) 77.2 H Lymph % (Auto) 11.7 L [place] % (Auto) 9.1 Eos % (Auto) 0.9 Baso % (Auto) 0.4 Lymph # (Auto) 1.4 [place] # (Auto) 1.1 Eos # (Auto) 0.1 Baso # (Auto) 0.1 Abs Immat Gran (auto) 0.08 H Absolute Neuts (auto) 9.3 H Absolute Nucleated RBC 0.000 Nucleated RBC % (auto) 0.0 PT 14.2 H INR 1.2 H Anion Gap 10 L Estim Creat Clear Calc 40.3 Estimated GFR 36 POC Glucose 59 L* 81 Random Glucose 67 Lactic Acid 1.0 Calcium 9.7 Total Bilirubin 0.7 AST 56 H ALT 32 H Alkaline Phosphatase 103 Troponin I High Sens < 2.7 B-Natriuretic Peptide Total Protein 6.3 L Albumin 2.9 L Urine Color Urine Appearance Urine pH Ur Specific [place] Urine Protein Urine Glucose (UA) Urine Ketones Urine Blood Urine Nitrite Ur Leukocyte Esterase Urine RBC Urine WBC Ur Squamous Epith Cells Urine Bacteria Hyaline Casts Urine Yeast Stool Occult Blood C. difficile Tox B Gene 06/17/23 06/17/23 06/17/23 09:17 09:21 09:25 MCV MCH MCHC RDW Plt Count MPV Immature Gran % (Auto) Neut % (Auto) Lymph % (Auto) [place] % (Auto) Eos % (Auto) Baso % (Auto) Lymph # (Auto) [place] # (Auto) Eos # (Auto) Baso # (Auto) Abs Immat Gran (auto) Absolute Neuts (auto) Absolute Nucleated RBC Nucleated RBC % (auto) PT INR Anion Gap Estim Creat Clear Calc Estimated GFR POC Glucose Random Glucose Lactic Acid Calcium Total Bilirubin AST ALT Alkaline Phosphatase Troponin I High Sens B-Natriuretic Peptide Total Protein Albumin Urine Color Yellow Urine Appearance Clear Urine pH 5.0 Ur Specific [place] 1.015 Urine Protein Negative Urine Glucose (UA) 500 H Urine Ketones Negative Urine Blood Negative Urine Nitrite Negative Ur Leukocyte Esterase Negative Urine RBC 0-2 Urine WBC 0-5 Ur Squamous Epith Cells 0-2 Urine Bacteria None Seen Hyaline Casts 3-5 Urine Yeast Present Stool Occult Blood NEGATIVE C. difficile Tox B Gene NEGATIVE 06/17/23 06/17/23 06/17/23 10:06 12:45 12:51 MCV 93.1 MCH 28.8 MCHC 31.0 RDW 18.8 H Plt Count 226 MPV 9.4 Immature Gran % (Auto) 0.7 H Neut % (Auto) 74.0 H Lymph % (Auto) 14.0 L [place] % (Auto) 9.9 Eos % (Auto) 1.1 Baso % (Auto) 0.3 Lymph # (Auto) 1.7 [place] # (Auto) 1.2 Eos # (Auto) 0.1 Baso # (Auto) 0.0 Abs Immat Gran (auto) 0.08 H Absolute Neuts (auto) 9.1 H Absolute Nucleated RBC 0.000 Nucleated RBC % (auto) 0.0 PT INR Anion Gap Estim Creat Clear Calc Estimated GFR POC Glucose 113 82 Random Glucose Lactic Acid Calcium Total Bilirubin AST ALT Alkaline Phosphatase Troponin I High Sens B-Natriuretic Peptide 119 H Total Protein Albumin Urine Color Urine Appearance Urine pH Ur Specific [place] Urine Protein Urine Glucose (UA) Urine Ketones Urine Blood Urine Nitrite Ur Leukocyte Esterase Urine RBC Urine WBC Ur Squamous Epith Cells Urine Bacteria Hyaline Casts Urine Yeast Stool Occult Blood C. difficile Tox B Gene Imaging Radiologist's Impressions: Impressions Chest X-Ray 06/17/23 07:58 IMPRESSION: Unremarkable chest examination. Assessment and Plan (1) Hypotension: Qualifiers: Hypotension type: unspecified hypotension type Qualified Code(s): I95.9 - Hypotension, unspecified Status: Acute (2) Hypoglycemia: Status: Acute (3) DVT of lower extremity, bilateral: Status: Acute Plan 77 year old female with history non insulin dependent type 2 diabetes, htn, unspecified CHF, hx dvt not on ac, hypothyroidism admitted for hypotension and hypoglycemia #Acute hypotension- hypotension resolved on admission, though bp remains soft -suspect related to medication. Not septic. However, positive for b/l DVT so will also r/out PE as cause of hypotension -Received 2.5L IVF in ED. Give albumin x 2 -hold antihypertsives, resume at lower lose as bp improves -monitor bp closely -admit to med/tele #Acute bilateral DVT -h/o dvt s/p IVC filter previously on xarelto dc'd 3 weeks ago due to GI bleed -no recent travel, has history of recent hospitalization without AC due to GI bleed (dc [facility] on 05/31) -initiate heparin drip per protocol -stool occult blood negative, monitor closely for bleeding given recent LGIB (due to AVM per patient) -check cta chest due to dyspnea/lightheadedness/hypotension -vascular surgery consult #Acute kidney injury- likely prerenal -creat 1.4, baseline 1.0. BUN 37 -given 2.5L IVF, hold on addl IVF -avoid nephrotoxins -follow renal function/lytes #Non insulin dependent type 2 diabetes with hypoglycemia -poc glucose, diabetoc diet -hold jardiance -humalog on sliding scale #Acute diarrhea -x4 episodes in ED, heme negative, ?r/t abx -cdiff negative, check gi panel -symptomatic management #Acute UTI -dx 06/13 with UC positive for ecoli sensitive to ctx -continue cefuroxime x4 addl doses #HTN -bp low normal on adm. -hold antihypertensives, resume at lower doses as bp improves #Unspecified CHF -euvolemic on exam, received 2.5L in ED -continue lasix am #Hypothyroidism -continue synthroid DVT prophylaxis- found to have ble dvt, started on heparin drip per protocol Full code Pt requires inpt stay at least 2 midnights due to hypotension, radha, bilateral dvt requiring close monitoring of VS, renal function/lytes, and heparin drip per protocol as well as expert consultation Quality Stroke Does the patient have a stroke diagnosis?: No VTE Prior VTE?: Yes VTE Risk Level:: Medical - moderate - high VTE Device Contraindication: Treatment Not Indicated VTE Drug Contraindication: N/A - Med Ordered
[2023-06-17] MEDS: Albumin Human 25 % 100 ML 125 ML IV ×4 (14:21→22:33)
[2023-06-17 15:20] LABS: INTERNATIONAL NORM RATIO 1.1 (0.9-1.1); Prothrombin Time 13.5 SEC (11.1-13.3)
[2023-06-17 15:22] LABS: PTT Heparin Drip 29.7 SEC (53-77.9)
[2023-06-17] MEDS: Hydrocortisone Sod Succ/PF 100 MG VIAL 200 MG IVPUSH (15:34)
--- NOTE | 2023-06-17 16:06 | PC.NURSE ---
Spoke with [facility] Pharmacist who will send Ammonium lotion to ED. Scheduled tid, nurse on assignment notified and will give lotion when it becomes available.
[2023-06-17] MEDS: Heparin Sodium,Porcine/1/2NS 25,000 UNIT/250 ML IV.SOLN 17.46 UNIT IVCONT (16:55)
--- NOTE | 2023-06-17 17:57 | PC.NURSE ---
Ammonium lotion not available, will document against at this time and recontact pharmacy for later dose
[2023-06-17] MEDS: Nystatin Powder 15 GM BOTTLE 1 APPL TOPICAL ×2 (17:59→21:19)
[2023-06-17 18:47] LABS: Glucose, Whole Blood 187 mg/dL (60-115)
[2023-06-17] MEDS: diphenhydrAMINE HCL 50 MG/ML VIAL IVPUSH (19:16)
[2023-06-17] MEDS: iohexoL 350 MG/ML 100 ML INFUS..BTL 75 ML IV (19:21)
--- NOTE | 2023-06-17 19:21 | PC.NURSE ---
assumed care of pt at 1900, per prior nurse 1630 insulin held, pt in CT - pt taken w/o premed benadryl, medicated per MAR, pt denies any n/v at this time, vss. pt reports that she hasn't been able to have a BM for GI panel yet. heparin running at 14u/kg/hr, next PTT-HD @2300.
[2023-06-17 21:16] LABS: Glucose, Whole Blood 257 mg/dL (60-115)
[2023-06-17] MEDS: Insulin Lispro 100 UNIT/ML 3 ML VIAL SUBCUT (21:18)
[2023-06-17] MEDS: Gabapentin 100 MG CAPSULE 200 MG PO (21:18)
[2023-06-17] MEDS: Silver Sulfadiazine 1 % Cream 20 GM TUBE 1 APPL TOPICAL (21:19)
[2023-06-17] MEDS: cefuroxime axetiL 250 MG TABLET PO (21:19)
[2023-06-17 23:29] LABS: PTT Heparin Drip 82.2 SEC (53-77.9)
[2023-06-18] VITALS (10 sets, daily range): BP systolic 98–120; BP diastolic 45–69; PULSE 56–79; RESP 16–20; TEMP 36.2–36.8; O2SAT 93–98
[2023-06-18] MEDS: Albumin Human 25 % 100 ML 125 ML IV ×2 (03:25→07:50)
[2023-06-18] MEDS: Levothyroxine Sodium 75 MCG TABLET PO (05:33)
[2023-06-18 06:29] LABS: MANUAL DIFF FLAG NO
[2023-06-18 06:33] LABS: Basophils Percent Auto 0.2 % (0-2); Hematocrit 23.9 % (37.0-47.0); Hemoglobin 7.3 g/dl (12.0-16.0); Imm Gran Abs Auto 0.04 X10*3/uL (0.00-0.03); Imm Gran Pct Auto 0.5 % (0.0-0.4); Lymphocytes Absolute Auto 0.9 X10*3/uL (1.2-4.9); Lymphocytes Percent Auto 10.4 % (20-40); Mean Corpuscular HGB Conc 30.5 g/dl (31.0-35.0); Mean Corpuscular Hemoglobin 28.9 pg (27.0-33.0); Mean Corpuscular Volume 94.5 fL (80.0-98.0); Mean Platelet Volume 10.8 fL (9.4-12.3); Monocytes Absolute Auto 0.5 X10*3/uL (0.1-1.2); Monocytes Percent Auto 5.4 % (2-11); Neutrophils Absolute Auto 7.2 x10*3/uL (2.0-8.3); Neutrophils Percent Auto 83.5 % (45-73); Platelet Count 177 X10*3/uL (160-400); Red Blood Count 2.53 X10*6/uL (4.20-5.50); Red Cell Distribution Width 18.8 % (11.0-16.0); White Blood Count 8.6 X10*3/uL (4.8-10.8)
[2023-06-18 06:47] LABS: INTERNATIONAL NORM RATIO 1.1 (0.9-1.1); Prothrombin Time 13.7 SEC (11.1-13.3)
[2023-06-18 06:49] LABS: Anion Gap 12 (12-20); Blood Urea Nitrogen 36 mg/dL (9-16); Calcium 9.8 mg/dL (8.4-10.2); Carbon Dioxide 20 mmol/L (22-29); Chloride 107 mmol/L (96-108); Creatinine Clr Calc Pharmacy 54.8; Estimated Glomerular Filt Rate 52; Glucose Random 299 mg/dL (60-115); PTT Heparin Drip 65.8 SEC (53-77.9); Sodium 134 mmol/L (135-145)
[2023-06-18] MEDS: Heparin Sodium,Porcine/1/2NS 25,000 UNIT/250 ML IV.SOLN 14.96 UNIT IVCONT (07:44)
[2023-06-18 07:45] LABS: Glucose, Whole Blood 250 mg/dL (60-115)
[2023-06-18] MEDS: Atorvastatin Calcium 40 MG TABLET PO (07:51)
[2023-06-18] MEDS: Insulin Lispro 100 UNIT/ML 3 ML VIAL SUBCUT ×3 (07:51→16:50)
[2023-06-18] MEDS: Gabapentin 100 MG CAPSULE 200 MG PO ×2 (07:51→21:31)
[2023-06-18] MEDS: 0.9 % Sodium Chloride Flush 3 ML SYRINGE IVFLUSH ×3 (07:51→21:32)
[2023-06-18] MEDS: Furosemide 20 MG TABLET PO (07:51)
[2023-06-18] MEDS: cefuroxime axetiL 250 MG TABLET PO ×2 (07:51→21:30)
--- NOTE | 2023-06-18 09:34 | MHC.CM.PN ---
CM met with Patient at bedside and addressed IMM with her, providing Patient with the original and a copy has been placed on the chart. Patient lives in a house with 2 Roommates who are Brothers and Patient's Friends and she uses a walker to assist with mobility. Patient has [employer] and a [employer] 21 hours/week. Home/resume said services is the goal and CM has initialed and will follow for dc planning. Patient's Granddaughter/Ana Maria and Son/Kieran are the HCPs and the PCP is Dr. Maricel Lance.
--- NOTE | 2023-06-18 10:56 | HO.PM.IMPN ---
Subjective Subjective Date of Service: 06/18/23 Interval History: Complaining of dry cough and mild lightheadedness ,with transfers and in sitting position, denies shortness of breath, no fevers, no chills no leg pain, denies hematemesis, no melena, noted to have drop in hematocrit to 23.9, agreeable for blood transfusion. Review of Systems All other system reviewed and negative. Physical Exam Vital Signs: Vital Signs: Last Vital Signs Temp 97.1 F 06/18/23 07:25 Pulse 73 06/18/23 07:25 Resp 18 06/18/23 07:25 BP 102/52 L 06/18/23 07:25 Pulse Ox 97 06/18/23 07:25 O2 Del Method Room Air 06/18/23 07:25 BMI result Body Mass Index 53.7 Const: Other: General awake alert x3, resting comfortably in no acute distress. Neck supple no JVD. CVS regular rate rhythm, Respiratory lungs clear to auscultation, no respiratory distress, no wheeze, no rhonchi. Gastrointestinal abdomen soft, non tender, bowel sounds audible, no guarding , no rigidity. Extremities bilateral edema both lower extremities. Mild erythema right lower extremity improving. Neuro non focal Skin warm and dry. Psych appropriate affect. Objective Data Active Medications Acetaminophen (Acetaminophen 325 Mg Tablet) 650 mg PO Q6H PRN PRN Reason: Pain, Mild (Pain Scale 1-3) Atorvastatin Calcium (Atorvastatin Calcium 40 Mg Tablet) 40 mg PO DAILY [facility] Last Admin: 06/18/23 07:51 Dose: 40 mg Documented By: MURIEL Benzonatate (Benzonatate 100 Mg Capsule) 100 mg PO TID [facility] Cefuroxime Axetil (Cefuroxime Axetil 250 Mg Tablet) 250 mg PO BID [facility] Stop: 06/19/23 09:01 Last Admin: 06/18/23 07:51 Dose: 250 mg Documented By: MURIEL Dextrose (Dextrose 50 % 25 Gm/50 Ml Syringe) 25 gm IVPUSH Q15M PRN; Protocol PRN Reason: per Hypoglycemia Standing Ord. Furosemide (Furosemide 20 Mg Tablet) 20 mg PO DAILY [facility]; Protocol Last Admin: 06/18/23 07:51 Dose: 20 mg Documented By: MURIEL Gabapentin (Gabapentin 100 Mg Capsule) 200 mg PO BID [facility] Last Admin: 06/18/23 07:51 Dose: 200 mg Documented By: MURIEL Glucose (Glucose Gel 15 Gm Gel..Gram.) 15 gm PO Q15M PRN; Protocol PRN Reason: per Hypoglycemia Standing Ord. Heparin Sodium (Porcine) (Heparin Sodium,Porcine 5,000 Unit/Ml Vial) 5,000 unit 40 unit/kg (5000 unit) IVPUSH PROTOCOL BOLUS PRN; Protocol PRN Reason: 40 unit/kg - Heparin Protocol Heparin Sodium (Porcine) (Heparin Sodium,Porcine 5,000 Unit/Ml Vial) 10,000 unit 80 unit/kg (70509 unit) IVPUSH PROTOCOL BOLUS PRN; Protocol PRN Reason: 80 unit/kg - Heparin Protocol Heparin Sodium/Sodium Chloride (Heparin Sodium,Porcine/1/2ns) 25,000 unit in 250 mls @ 0 mls/hr IVCONT .Q0M [facility]; Protocol Last Admin: 06/18/23 07:44 Dose: 12 units/kg/hr, 14.96 mls/hr Documented By: MURIEL Co-signed By: RAHEEM Insulin Human Lispro (Insulin Lispro 100 Unit/Ml 3 Ml Vial) 0 unit SUBCUT QIDACHS [facility]; Protocol Last Admin: 06/18/23 07:51 Dose: 4 unit Documented By: MURIEL Lactic Acid (Ammonium Lactate 12 % Lotion 226 Gm Bottle) 1 appl TOPICAL TID [facility]; Protocol Last Admin: 06/17/23 21:19 Dose: Not Given Documented By: ANNA Non-Admin Reason: No Access Levothyroxine Sodium (Levothyroxine Sodium 75 Mcg Tablet) 75 mcg PO DAILY@0600 [facility] Last Admin: 06/18/23 05:38 Dose: Not Given Documented By: YAYA Non-Admin Reason: duplicate order Nystatin (Nystatin Powder 15 Gm Bottle) 1 appl TOPICAL QID [facility]; Protocol Last Admin: 06/17/23 21:19 Dose: 1 appl Documented By: ANNA Ondansetron HCl (Ondansetron Hcl 4 Mg/2 Ml Vial) 4 mg IVPUSH Q8H PRN PRN Reason: Nausea and Vomiting Senna (Sennosides 8.6 Mg Tablet) 17.2 mg PO BEDTIME PRN PRN Reason: Constipation Silver Sulfadiazine (Silver Sulfadiazine 1 % Cream 20 Gm Tube) 1 appl TOPICAL BID [facility] Last Admin: 06/17/23 21:19 Dose: 1 appl Documented By: ANNA Sodium Chloride (0.9 % Sodium Chloride Flush 3 Ml Syringe) 3 ml IVFLUSH QSHIFT [facility] Last Admin: 06/18/23 07:51 Dose: 3 ml Documented By: MURIEL Labs 06/18/23 05:48 06/18/23 05:48 Labs: Laboratory Results - last 24 hr 06/17/23 06/17/23 06/17/23 12:45 12:51 14:54 MCV 93.1 MCH 28.8 MCHC 31.0 RDW 18.8 H Plt Count 226 MPV 9.4 Immature Gran % (Auto) 0.7 H Neut % (Auto) 74.0 H Lymph % (Auto) 14.0 L [place] % (Auto) 9.9 Eos % (Auto) 1.1 Baso % (Auto) 0.3 Lymph # (Auto) 1.7 [place] # (Auto) 1.2 Eos # (Auto) 0.1 Baso # (Auto) 0.0 Abs Immat Gran (auto) 0.08 H Absolute Neuts (auto) 9.1 H Absolute Nucleated RBC 0.000 Nucleated RBC % (auto) 0.0 PT 13.5 H INR 1.1 aPTT Heparin Protocol 29.7 L Anion Gap Estim Creat Clear Calc Estimated GFR POC Glucose 82 Random Glucose Calcium B-Natriuretic Peptide 119 H Blood Type Antibody Screen Crossmatch 06/17/23 06/17/23 06/17/23 18:41 21:12 23:15 MCV MCH MCHC RDW Plt Count MPV Immature Gran % (Auto) Neut % (Auto) Lymph % (Auto) [place] % (Auto) Eos % (Auto) Baso % (Auto) Lymph # (Auto) Deuel # (Auto) Eos # (Auto) Baso # (Auto) Abs Immat Gran (auto) Absolute Neuts (auto) Absolute Nucleated RBC Nucleated RBC % (auto) PT INR aPTT Heparin Protocol 82.2 H D Anion Gap Estim Creat Clear Calc Estimated GFR POC Glucose 187 H 257 H Random Glucose Calcium B-Natriuretic Peptide Blood Type Antibody Screen Crossmatch 06/18/23 06/18/23 06/18/23 05:48 07:28 10:04 MCV 94.5 MCH 28.9 MCHC 30.5 L RDW 18.8 H Plt Count 177 MPV 10.8 Immature Gran % (Auto) 0.5 H Neut % (Auto) 83.5 H Lymph % (Auto) 10.4 L [place] % (Auto) 5.4 Eos % (Auto) 0.0 Baso % (Auto) 0.2 Lymph # (Auto) 0.9 L [place] # (Auto) 0.5 Eos # (Auto) 0.0 Baso # (Auto) 0.0 Abs Immat Gran (auto) 0.04 H Absolute Neuts (auto) 7.2 Absolute Nucleated RBC 0.000 Nucleated RBC % (auto) 0.0 PT 13.7 H INR 1.1 aPTT Heparin Protocol 65.8 Anion Gap 12 Estim Creat Clear Calc 54.8 Estimated GFR 52 POC Glucose 250 H Random Glucose 299 H Calcium 9.8 B-Natriuretic Peptide Blood Type O Positive Antibody Screen NEGATIVE Crossmatch See Detail Microbiology Microbiology Results: Microbiology 06/17/23 07:38 Blood Culture - Preliminary Blood - Venous No growth after 24 hours. 06/17/23 07:38 Blood Culture - Preliminary Blood - Venous No growth after 24 hours. Assessment and Plan (1) DVT of lower extremity, bilateral: Status: Acute (2) Hypotension: Status: Acute (3) Hypoglycemia: Status: Acute Plan 77 year old female with history non insulin dependent type 2 diabetes, htn, unspecified CHF, hx dvt not on ac, hypothyroidism admitted for hypotension and hypoglycemia #Acute hypotension- hypotension resolved , bp remains soft -no sepsis -status post 2.5 L of IV fluids and albumin -hold antihypertsives, resume at lower lose as bp improves -monitor bp closely #Acute bilateral DVT -h/o dvt s/p IVC filter previously on xarelto dc'd 3 weeks ago due to GI bleed -no recent travel, has history of recent hospitalization without AC due to GI bleed (dc [facility] on 05/31) -continue heparin drip per protocol -stool occult blood negative, monitor closely for bleeding given recent LGIB (due to AVM per patient) -cta chest negative for PE -vascular surgery consult obtained. #Acute kidney injury- likely prerenal resolved with IV fluids, will avoid nephrotoxins # acute on chronic symptomatic normocytic anemia likely dilutional, no acute GI bleed noted, will transfuse 1 unit of packed RBC and follow CBC. #Non insulin dependent type 2 diabetes with hypoglycemia -hypoglycemia resolved blood sugars in 200-300 range , continue insulin sliding scale -hold glimepiride, and jardiance. #Acute diarrhea -x4 episodes in ED, heme negative, ?r/t abx -cdiff negative, gi panel pending -symptomatic management #Acute UTI -dx 06/13 with UC positive for ecoli sensitive to ctx -continue cefuroxime x4 addl doses #HTN -bp low normal on adm. -hold antihypertensives, Coreg and losartan, resume at lower doses as bp improves #Unspecified CHF -euvolemic on exam, received 2.5L in ED -continue lasix am #Hypothyroidism -continue synthroid DVT prophylaxis- found to have ble dvt, on heparin drip per protocol Full code Pt requires continued inpt stay due to hypotension, radha, bilateral dvt requiring close monitoring of VS, renal function/lytes, and heparin drip per protocol as well as expert consultation. Quality Stroke Does the patient have a stroke diagnosis?: No VTE Prior VTE?: Yes VTE Risk Level:: Medical - moderate - high VTE Device Contraindication: Treatment Not Indicated VTE Drug Contraindication: N/A - Med Ordered
[2023-06-18 11:16] LABS: PTT Heparin Drip 68.8 SEC (53-77.9)
[2023-06-18 11:21] LABS: Glucose, Whole Blood 181 mg/dL (60-115)
--- NOTE | 2023-06-18 11:39 | HO.WOUND ---
Addendum entered by Shannon Butterfield RN 06/18/23 12:21: Sacrum - Deep Tissue Injury in Evolution POA Original Note: Wound Consult: Initial 77yr old?F admitted to [facility] [place] on [place]/23 - See progress notes and H&P for detailed history.? Wound consult placed for sacral wound POA.? The below documentation is made after photo review from direct care nurse and discussion with direct care nurse. Sacrum Etiology: Deep tissue Injury in Evolution - ??Present on Admission Wound Bed: dark purple irregular boarders with scattered areas of partial thickness tissue loss Edges: ?irregular edges - may be explained by Heparin drip in place and platlet count however remains over a bony prominence and pt reports sitting for extended periods of time Goals of Treatment: ? Triad and foam application to protect from moisture and friction and allow for moist wound healing Recommendations: 1. Turn and Reposition every 2 hours and as needed for patient comfort.? Use pillows or wedges to support off loading positions. Waffle cushion provided for use in recliner chair - limit sit time to 2 hour increments. 2. Off Load all bony prominences with use of pillows and heel boots if needed.? Apply Preventative foams where needed. ? 3. Monitor for incontinence and moisture control, use barrier creams when needed for prevention and treatment. 4. Provide adequate and supplemental nutrition.? 5. Order low air loss mattress. 6. When applicable maintain blood glucose levels per Providers order. 7. Sacrum -Off Load Pressure - Cleanse with PH balance spray or wipes, pat dry. ?Apply thin layer of Triad to wound bed. Do not remove all of paste between applications as this may cause further skin damage.? Cover with foam dressing to aid in off loading and protection from friction. Re-consult wound care Nurse for wound deterioration or wound changes.
[2023-06-18] MEDS: Benzonatate 100 MG CAPSULE PO ×3 (12:04→21:49)
[2023-06-18] MEDS: Nystatin Powder 15 GM BOTTLE 1 APPL TOPICAL ×4 (12:04→21:32)
[2023-06-18] MEDS: Silver Sulfadiazine 1 % Cream 20 GM TUBE 1 APPL TOPICAL (12:04)
[2023-06-18] MEDS: Ammonium Lactate 12 % Lotion 226 GM BOTTLE 1 APPL TOPICAL ×3 (12:04→21:32)
[2023-06-18 12:24] LABS: Adenovirus F 40/41 Not Detected (Not Detect.); Astrovirus Not Detected (Not Detect.); Campylobacter Not Detected (Not Detect.); Cryptosporidium Not Detected (Not Detect.); Cyclospora cayetanensis Not Detected (Not Detect.); E. coli EAEC Not Detected (Not Detect.); E. coli EPEC Not Detected (Not Detect.); E. coli ETEC Not Detected (Not Detect.); E. coli STEC Not Detected (Not Detect.); Entamoeba histolytica Not Detected (Not Detect.); Giardia lamblia Not Detected (Not Detect.); Norovirus GI/GII Not Detected (Not Detect.); Plesiomonas shigelloides Not Detected (Not Detect.); Rotavirus A Not Detected (Not Detect.); Salmonella Not Detected (Not Detect.); Sapovirus Not Detected (Not Detect.); Shigella sp./EIEC Not Detected (Not Detect.); Vibrio Not Detected (Not Detect.); Vibrio Cholerae Not Detected (Not Detect.); Yersinia enterocolitica Not Detected (Not Detect.)
--- NOTE | 2023-06-18 13:21 | P.CDIM_ITS ---
PROVIDER RESPONSE TEXT: To clarify, the appropriate diagnosis supported by the clinical indicators: Obesity Due to excess calories QUERY TEXT: PHYSICIAN'S DOCUMENTATION REQUEST Date of Query: 06/18/2023 01:08 PM EST Patient Name: Juliann Lr Admit Date: 06/17/2023 Dear Heriberto Arango, A review of the medical record indicates additional documentation may be needed. Please review below and update the documentation accordingly. Clinical Indicators: Height: ( ) 5' Weight: ( ) 124.7 kg BMI: ( ) 53.7 Other Clinical Notes Supporting Significance of the BMI: Per Nutritional Risk Assessment 06/18/23: On therapeutic diet If possible, please provide an associated diagnosis related to the abnormal BMI, such as: Overweight Obesity Due to excess calories Obesity Drug induced Obesity Due to other cause Specify the other cause Severe or Morbid Obesity With alveolar hypoventilation Severe or Morbid Obesity Without alveolar hypoventilation BMI is not significant Other (explain) Clinically unable to determine (explain) Thank you, Lydia Colon RN Use of terms such as suspected, likely, concern for, or probable (associated with a specific diagnosi s that is being evaluated, monitored, or treated as if it exists) are acceptable and can be coded in the inpatient se tting, when documented at the time of discharge. Please use your independent medical judgment in providing your response. THIS QUERY IS PART OF THE PERMANENT MEDICAL RECORD
--- NOTE | 2023-06-18 15:42 | P.CONGS_ITS ---
History of Present Illness Consult details Consult date: 06/18/23 Reason for consult: other (DVT) Narrative: Very complex 77-year-old female with a prior history of DVT and PE had what appears to be a thrombectomy and filter placement nearly 5 years ago. She had been on Xarelto since that time. Approximately 2 weeks ago she was at [facility]. At that time she had a significant GI bleed where she needed 8 units of packed red blood cells. 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 It was cauterized. Upon arrival here she was found to be hypotensive and had a hemoglobin as low as 7.3. 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 She now presents to us for vascular evaluation. Review of Systems 2 Constitutional: Constitutional: Reports as per HPI ENT: Reports system reviewed and no additional complaints, except as documented Cardiovascular: Cardiovascular: Denies chest pain, Denies chest pain at rest and Denies chest pain with activity Respiratory: Respiratory: Denies chest congestion and Denies cough Gastrointestinal: Gastrointestinal: Reports no additional gastrointestinal complaints Musculoskeletal: Musculoskeletal: Denies abnormal gait Integumentary/Breasts: Skin/Breast: Reports pruritus and Denies wounds Neurologic: Reports system reviewed and no additional complaints, except as documented and Denies abnormal gait Psychiatric: Psychiatric: Denies no additional psychiatric complaints [facility] Past Medical History Medical History Type 2 diabetes mellitus DVT (deep venous thrombosis) Hypothyroidism Hypertension CHF (congestive heart failure) Social History Social History Household Members: None Housing: House Do you presently have visiting nurse or other home services: Yes ([facility], [employer]) Patient Tobacco Use Status: Never used Tobacco Smoked in Last 30 Days: No Use of substances other than those prescribed or required for medical reasons: No Currently Displaying Signs/Symptoms of Drug Intoxication Withdrawal: No Advance Directives: No Advance Directives Information Provided: No Advance Directives on File: No Do you have thoughts of harming others: None Do you have a plan to hurt others: No Plan Recently lost weight without trying: No Nutrition Risks: No Nutritional Risk Patient : No : No Poor oral hygiene: No service: No Meds Allergies Allergy/AdvReac Type Severity Reaction Status Date / Time hydrochlorothiazide Allergy Mild COUGH Verified 06/13/23 04:28 [Hydrochlorothiazide] Sulfa (Sulfonamide Allergy Mild RASH Verified 06/13/23 04:28 Antibiotics) lisinopril Allergy Unknown Cough Verified 06/13/23 04:28 Iodinated Contrast Media AdvReac Mild N/V Verified 06/13/23 04:28 [IV Dye, Iodine Containing] warfarin Allergy Unknown Unknown Uncoded 06/13/23 00:20 Active Medications: Current Medications Acetaminophen (Acetaminophen 325 Mg Tablet) 650 mg PO Q6H PRN PRN Reason: Pain, Mild (Pain Scale 1-3) Atorvastatin Calcium (Atorvastatin Calcium 40 Mg Tablet) 40 mg PO DAILY [facility] Last Admin: 06/18/23 07:51 Dose: 40 mg Benzonatate (Benzonatate 100 Mg Capsule) 100 mg PO TID [facility] Last Admin: 06/18/23 12:04 Dose: 100 mg Cefuroxime Axetil (Cefuroxime Axetil 250 Mg Tablet) 250 mg PO BID [facility] Stop: 06/19/23 09:01 Last Admin: 06/18/23 07:51 Dose: 250 mg Dextrose (Dextrose 50 % 25 Gm/50 Ml Syringe) 25 gm IVPUSH Q15M PRN; Protocol PRN Reason: per Hypoglycemia Standing Ord. Furosemide (Furosemide 20 Mg Tablet) 20 mg PO DAILY [facility]; Protocol Last Admin: 06/18/23 07:51 Dose: 20 mg Gabapentin (Gabapentin 100 Mg Capsule) 200 mg PO BID [facility] Last Admin: 06/18/23 07:51 Dose: 200 mg Glucose (Glucose Gel 15 Gm Gel..Gram.) 15 gm PO Q15M PRN; Protocol PRN Reason: per Hypoglycemia Standing Ord. Heparin Sodium (Porcine) (Heparin Sodium,Porcine 5,000 Unit/Ml Vial) 5,000 unit 40 unit/kg (5000 unit) IVPUSH PROTOCOL BOLUS PRN; Protocol PRN Reason: 40 unit/kg - Heparin Protocol Heparin Sodium (Porcine) (Heparin Sodium,Porcine 5,000 Unit/Ml Vial) 10,000 unit 80 unit/kg (13551 unit) IVPUSH PROTOCOL BOLUS PRN; Protocol PRN Reason: 80 unit/kg - Heparin Protocol Heparin Sodium/Sodium Chloride (Heparin Sodium,Porcine/1/2ns) 25,000 unit in 250 mls @ 0 mls/hr IVCONT .Q0M [facility]; Protocol Last Titration: 06/18/23 11:38 Dose: 12 units/kg/hr, 14.96 mls/hr Insulin Human Lispro (Insulin Lispro 100 Unit/Ml 3 Ml Vial) 0 unit SUBCUT QIDACHS [facility]; Protocol Last Admin: 06/18/23 12:04 Dose: 2 unit Lactic Acid (Ammonium Lactate 12 % Lotion 226 Gm Bottle) 1 appl TOPICAL TID [facility]; Protocol Last Admin: 06/18/23 12:04 Dose: 1 appl Levothyroxine Sodium (Levothyroxine Sodium 75 Mcg Tablet) 75 mcg PO DAILY@0600 [facility] Last Admin: 06/18/23 05:38 Dose: Not Given Nystatin (Nystatin Powder 15 Gm Bottle) 1 appl TOPICAL QID [facility]; Protocol Last Admin: 06/18/23 12:10 Dose: 1 appl Ondansetron HCl (Ondansetron Hcl 4 Mg/2 Ml Vial) 4 mg IVPUSH Q8H PRN PRN Reason: Nausea and Vomiting Senna (Sennosides 8.6 Mg Tablet) 17.2 mg PO BEDTIME PRN PRN Reason: Constipation Silver Sulfadiazine (Silver Sulfadiazine 1 % Cream 20 Gm Tube) 1 appl TOPICAL BID [facility] Last Admin: 06/18/23 12:04 Dose: 1 appl Sodium Chloride (0.9 % Sodium Chloride Flush 3 Ml Syringe) 3 ml IVFLUSH QSHIFT [facility] Last Admin: 06/18/23 07:51 Dose: 3 ml Home Medications Medication Instructions Recorded Confirmed Last Taken Type acetaminophen 500 mg tablet 500 mg PO BID PRN Pain, Mild 06/17/23 06/17/23 Unknown History ammonium lactate 12 % lotion 1 appl topical TID 06/17/23 06/17/23 Unknown History atorvastatin 40 mg tablet 40 mg PO DAILY 06/17/23 06/17/23 Unknown History carvedilol 25 mg tablet 25 mg PO BID 06/17/23 06/17/23 Unknown History cefuroxime axetil 250 mg tablet 250 mg PO BID 06/17/23 06/17/23 Unknown History empagliflozin 10 mg tablet 10 mg PO DAILY 06/17/23 06/17/23 Unknown History (Jardiance) furosemide 20 mg tablet 20 mg PO DAILY 06/17/23 06/17/23 Unknown History gabapentin 100 mg capsule 200 mg PO BID 06/17/23 06/17/23 Unknown History glimepiride 2 mg tablet 2 mg PO DAILY 06/17/23 06/17/23 Unknown History levothyroxine 75 mcg tablet 75 mcg PO DAILY@0530 06/17/23 06/17/23 Unknown History losartan 25 mg tablet 25 mg PO DAILY 06/17/23 06/17/23 Unknown History nystatin 100,000 unit/gram topical 400,000 unit topical QID 06/17/23 06/17/23 Unknown History powder silver sulfadiazine 1 % topical 1 appl topical BID 06/17/23 06/17/23 Unknown History cream (SSD) Physical Exam 2 Vital Signs: Vital Signs: Last Vital Signs Temp 97.5 F 06/18/23 15:24 Pulse 64 06/18/23 15:24 Resp 18 06/18/23 15:24 BP 107/55 L 06/18/23 15:24 Pulse Ox 98 06/18/23 15:24 O2 Del Method Room Air 06/18/23 15:24 BMI result Body Mass Index 53.7 Const: General: cooperative, healthy appearing and comfortable O rientation/consciousness: oriented to person, oriented to place and oriented to time Neck: Carotids: no bruits Chest: Chest palpation & inspection: normal inspection of the chest and normal palpation of entire chest wall Resp: Effort & Inspection: normal respiratory effort and able to speak in complete sentences Cardio: Rate: regular rate Heart sounds: S1 normal heart sound present and S2 normal heart sound present Peripheral pulses: Peripheral pulses 2+ throughout GI: Inspection: Yes normal to inspection Skin: Other: +2 edema, bilateral lower extremity General skin exam: dry skin Neuro: General: oriented to person, oriented to place and oriented to time Extrem: Right lower extremity: full ROM, normal capillary refill and edema Left lower extremity: full ROM, normal capillary refill and edema Psych: Mental Status: mental status grossly normal Results Labs 06/18/23 05:48 06/18/23 05:48 Labs: Abnormal lab results 06/17/23 06/17/23 06/17/23 Range/Units 18:41 21:12 23:15 RBC (4.20-5.50) X10*6/uL Hgb (12.0-16.0) g/dl Hct (37.0-47.0) % MCHC (31.0-35.0) g/dl RDW (11.0-16.0) % Immature Gran % (Auto) (0.0-0.4) % Neut % (Auto) (45-73) % Lymph % (Auto) (20-40) % Lymph # (Auto) (1.2-4.9) X10*3/uL Abs Immat Gran (auto) (0.00-0.03) X10*3/uL PT (11.1-13.3) SEC aPTT Heparin Protocol 82.2 H D (53-77.9) SEC Sodium (135-145) mmol/L Carbon Dioxide (22-29) mmol/L BUN (9-16) mg/dL POC Glucose 187 H 257 H (60-115) mg/dL Random Glucose (60-115) mg/dL Crossmatch 06/18/23 06/18/23 06/18/23 Range/Units 05:48 07:28 10:04 RBC 2.53 L (4.20-5.50) X10*6/uL Hgb 7.3 L (12.0-16.0) g/dl Hct 23.9 L (37.0-47.0) % MCHC 30.5 L (31.0-35.0) g/dl RDW 18.8 H (11.0-16.0) % Immature Gran % (Auto) 0.5 H (0.0-0.4) % Neut % (Auto) 83.5 H (45-73) % Lymph % (Auto) 10.4 L (20-40) % Lymph # (Auto) 0.9 L (1.2-4.9) X10*3/uL Abs Immat Gran (auto) 0.04 H (0.00-0.03) X10*3/uL PT 13.7 H (11.1-13.3) SEC aPTT Heparin Protocol (53-77.9) SEC Sodium 134 L (135-145) mmol/L Carbon Dioxide 20 L (22-29) mmol/L BUN 36 H (9-16) mg/dL POC Glucose 250 H (60-115) mg/dL Random Glucose 299 H (60-115) mg/dL Crossmatch See Detail 06/18/23 Range/Units 11:11 RBC (4.20-5.50) X10*6/uL Hgb (12.0-16.0) g/dl Hct (37.0-47.0) % MCHC (31.0-35.0) g/dl RDW (11.0-16.0) % Immature Gran % (Auto) (0.0-0.4) % Neut % (Auto) (45-73) % Lymph % (Auto) (20-40) % Lymph # (Auto) (1.2-4.9) X10*3/uL Abs Immat Gran (auto) (0.00-0.03) X10*3/uL PT (11.1-13.3) SEC aPTT Heparin Protocol (53-77.9) SEC Sodium (135-145) mmol/L Carbon Dioxide (22-29) mmol/L BUN (9-16) mg/dL POC Glucose 181 H (60-115) mg/dL Random Glucose (60-115) mg/dL Crossmatch Short CBC 06/18/23 Range/Units 05:48 WBC 8.6 (4.8-10.8) X10*3/uL Hgb 7.3 L (12.0-16.0) g/dl Hct 23.9 L (37.0-47.0) % Plt Count 177 (160-400) X10*3/uL BMP 06/18/23 05:48 Sodium 134 L Potassium 5.0 Chloride 107 Carbon Dioxide 20 L BUN 36 H Creatinine 1.03 Calcium 9.8 Urine 06/17/23 Range/Units 09:17 Urine Color Yellow Urine Appearance Clear Urine pH 5.0 (5.0-9.0) Ur Specific [place] 1.015 (1.005-1.025) Urine Protein Negative (Neg-Trace) mg/dL Urine Glucose (UA) 500 H (Negative) mg/dL All other labs normal. Imaging Additional studies: DVT study along with CT angio were reviewed written report and images. No evidence of PE. 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 At the current time would recommend anticoagulation. May require thrombectomy but at the current time do not feel that she is stable for this. Will try to obtain old records. Will discuss findings with the patient and reassess tomorrow. Case discussed with the primary team. Thank you for allowing us to assist in her care. Procedures Date of Service Date of Service: 06/18/23
[2023-06-18 16:30] LABS: Glucose, Whole Blood 164 mg/dL (60-115)
[2023-06-18 20:40] LABS: Glucose, Whole Blood 140 mg/dL (60-115)
[2023-06-18] MEDS: Acetaminophen 325 MG TABLET 650 MG PO (21:31)
[2023-06-19] MEDS: Heparin Sodium,Porcine/1/2NS 25,000 UNIT/250 ML IV.SOLN 14.96 UNIT IVCONT ×2 (00:46→18:32)
[2023-06-19 03:57] VITALS: BP 140/57; PULSE 76; RESP 20; TEMP 36.4; O2SAT 94
[2023-06-19] MEDS: Levothyroxine Sodium 75 MCG TABLET PO (05:04)
[2023-06-19] MEDS: Acetaminophen 325 MG TABLET 650 MG PO (05:05)
[2023-06-19 06:09] LABS: Mean Corpuscular Hemoglobin 29.5 pg (27.0-33.0); Mean Corpuscular Volume 92.3 fL (80.0-98.0); Platelet Count 296 X10*3/uL (160-400); Red Blood Count 2.71 X10*6/uL (4.20-5.50); White Blood Count 9.9 X10*3/uL (4.8-10.8)
[2023-06-19 06:22] LABS: PTT Heparin Drip 58.8 SEC (53-77.9)
[2023-06-19 06:26] LABS: Anion Gap 12 (12-20); Blood Urea Nitrogen 40 mg/dL (9-16); Calcium 9.9 mg/dL (8.4-10.2); Carbon Dioxide 20 mmol/L (22-29); Chloride 107 mmol/L (96-108); Creatinine Clr Calc Pharmacy 52.3; Estimated Glomerular Filt Rate 49; Glucose Random 142 mg/dL (60-115); Potassium 4.7 mmol/L (3.3-5.1); Sodium 134 mmol/L (135-145)
[2023-06-19 07:04] LABS: Glucose, Whole Blood 138 mg/dL (60-115)
[2023-06-19 07:11] VITALS: BP 111/53; PULSE 72; RESP 18; TEMP 36.9; O2SAT 93
[2023-06-19 08:53] LABS: Thyroid Stimulating Hormone 2.86 uIU/mL (0.32-4.0)
[2023-06-19] MEDS: Gabapentin 100 MG CAPSULE 200 MG PO ×2 (08:53→21:46)
[2023-06-19] MEDS: Furosemide 20 MG TABLET PO (08:53)
[2023-06-19] MEDS: 0.9 % Sodium Chloride Flush 3 ML SYRINGE IVFLUSH ×2 (08:53→18:46)
[2023-06-19] MEDS: cefuroxime axetiL 250 MG TABLET PO (08:53)
[2023-06-19] MEDS: Benzonatate 100 MG CAPSULE PO (08:53)
[2023-06-19] MEDS: Atorvastatin Calcium 40 MG TABLET PO (08:53)
[2023-06-19] MEDS: Ammonium Lactate 12 % Lotion 226 GM BOTTLE 1 APPL TOPICAL ×3 (08:54→21:42)
[2023-06-19] MEDS: Nystatin Powder 15 GM BOTTLE 1 APPL TOPICAL ×4 (08:54→21:46)
--- NOTE | 2023-06-19 10:01 | HO.VASCPN ---
Subjective Subjective Date of Service: 06/19/23 Patient reports: no new complaints and feels better Interval history: Very pleasant 77-year-old female with bilateral lower extremity DVTs. Had received a unit transfusion yesterday. Appears to be doing relatively well today. Continues to need oxygen. Now for routine follow-up. Physical Exam Vital Signs: Vital Signs: Last Vital Signs Temp 98.5 F 06/19/23 07:11 Pulse 72 06/19/23 07:11 Resp 18 06/19/23 07:11 BP 111/53 L 06/19/23 07:11 Pulse Ox 93 06/19/23 07:11 O2 Del Method Room Air 06/19/23 07:11 BMI result Body Mass Index 53.7 Const: General: cooperative, healthy appearing and no acute distress Orientation/consciousness: oriented to person, oriented to place and oriented to time HEENT: Head: Yes normal to inspection Neck: Carotids: no bruits Chest: Chest palpation & inspection: normal inspection of the chest Resp: Effort & Inspection: normal respiratory effort and able to speak in complete sentences Auscultation: clear to auscultation bilaterally Cardio: Rate: regular rate Heart sounds: S1 normal heart sound present and S2 normal heart sound present GI: Inspection: Yes normal to inspection Skin: General skin exam: no rashes or lesions noted Wounds: no wounds Neuro: General: oriented to person, oriented to place, oriented to time and CN's II-XI intact bilaterally Extrem: Other: Bilateral lower extremity +2 edema General: Yes normal to inspection, Yes full ROM and Yes no clubbing, cyanosis or edema Psych: Appearance: grossly normal and well kempt Speech and movement: Normal speech and movement present Affect: normal affect Progress Note: A&P Assessment and plan (1) DVT of lower extremity, bilateral: Status: Acute Assessment and Plan: In short patient has bilateral lower extremity DVTs. This appears to be acute on chronic. In addition patient did require a blood transfusion. Prior to that at [facility] she was transfused nearly 8 units of blood. I did discuss the options with the patient and at the current time would manage this conservatively. Would anticoagulate as tolerated. She can follow up with us on an as-needed basis. Thank you for allowing us to assist in her care. Time Spent With Patient Time: Total time managing care of this patient today ____ minutes. Procedures Date of Service Date of Service: 06/19/23 Quality Stroke Does the patient have a stroke diagnosis?: No VTE Prior VTE?: Yes VTE Risk Level:: Medical - moderate - high VTE Device Contraindication: Treatment Not Indicated VTE Drug Contraindication: N/A - Med Ordered
--- NOTE | 2023-06-19 10:52 | P.PNIM_ITS ---
Subjective Subjective Date of Service: 06/19/23 Interval History: Complaining of persistent dry cough, current cough medications not helping complaining of postnasal drip, denies shortness of breath, no cough, denies fever, no chills, no acute events overnight, denies GI bleed. Review of Systems All other system reviewed and negative. Physical Exam 2 Vital Signs: Vital Signs: Last Vital Signs Temp 98.5 F 06/19/23 07:11 Pulse 72 06/19/23 07:11 Resp 18 06/19/23 07:11 BP 111/53 L 06/19/23 07:11 Pulse Ox 93 06/19/23 07:11 O2 Del Method Room Air 06/19/23 07:11 BMI result Body Mass Index 53.7 Const: Other: General awake alert x3, resting comfortably in no acute distress. Neck supple no JVD. CVS regular rate rhythm, Respiratory lungs clear to auscultation, no respiratory distress, no wheeze, no rhonchi. Gastrointestinal abdomen soft, non tender, bowel sounds audible, no guarding , no rigidity. Extremities bilateral 3+ pitting edema both lower extremities. Mild erythema right lower extremity improving. Neuro non focal Skin warm and dry. Psych appropriate affect. Objective Data Active Medications Acetaminophen (Acetaminophen 325 Mg Tablet) 650 mg PO Q6H PRN PRN Reason: Pain, Mild (Pain Scale 1-3) Last Admin: 06/19/23 05:05 Dose: 650 mg Documented By: YAKELIN Atorvastatin Calcium (Atorvastatin Calcium 40 Mg Tablet) 40 mg PO DAILY [facility] Last Admin: 06/19/23 08:53 Dose: 40 mg Documented By: KOLTON Benzonatate (Benzonatate 100 Mg Capsule) 100 mg PO TID [facility] Last Admin: 06/19/23 08:53 Dose: 100 mg Documented By: KOLTON Dextrose (Dextrose 50 % 25 Gm/50 Ml Syringe) 25 gm IVPUSH Q15M PRN; Protocol PRN Reason: per Hypoglycemia Standing Ord. Fluticasone Propionate (Fluticasone Propionate Nasal 16 Gm [place]) 1 spray NOSTRIL-B BID [facility] Last Admin: 06/19/23 09:33 Dose: Not Given Documented By: KOLTON Non-Admin Reason: cant find kristi call pharm Furosemide (Furosemide 20 Mg Tablet) 20 mg PO DAILY [facility]; Protocol Last Admin: 06/19/23 08:53 Dose: 20 mg Documented By: KOLTON Gabapentin (Gabapentin 100 Mg Capsule) 200 mg PO BID [facility] Last Admin: 06/19/23 08:53 Dose: 200 mg Documented By: KOLTON Glucose (Glucose Gel 15 Gm Gel..Gram.) 15 gm PO Q15M PRN; Protocol PRN Reason: per Hypoglycemia Standing Ord. Heparin Sodium (Porcine) (Heparin Sodium,Porcine 5,000 Unit/Ml Vial) 5,000 unit 40 unit/kg (5000 unit) IVPUSH PROTOCOL BOLUS PRN; Protocol PRN Reason: 40 unit/kg - Heparin Protocol Heparin Sodium (Porcine) (Heparin Sodium,Porcine 5,000 Unit/Ml Vial) 10,000 unit 80 unit/kg (93717 unit) IVPUSH PROTOCOL BOLUS PRN; Protocol PRN Reason: 80 unit/kg - Heparin Protocol Heparin Sodium/Sodium Chloride (Heparin Sodium,Porcine/1/2ns) 25,000 unit in 250 mls @ 0 mls/hr IVCONT .Q0M [facility]; Protocol Last Admin: 06/19/23 00:46 Dose: 12 units/kg/hr, 14.96 mls/hr Documented By: YAKELIN Co-signed By: AKIL Insulin Human Lispro (Insulin Lispro 100 Unit/Ml 3 Ml Vial) 0 unit SUBCUT QIDACHS [facility]; Protocol Last Admin: 06/19/23 08:47 Dose: Not Given Documented By: KOLTON Non-Admin Reason: Medication Discontinued Lactic Acid (Ammonium Lactate 12 % Lotion 226 Gm Bottle) 1 appl TOPICAL TID [facility]; Protocol Last Admin: 06/19/23 08:54 Dose: 1 appl Documented By: KOLTON Levothyroxine Sodium (Levothyroxine Sodium 75 Mcg Tablet) 75 mcg PO DAILY@0600 [facility] Last Admin: 06/19/23 05:04 Dose: 75 mcg Documented By: YAKELIN Nystatin (Nystatin Powder 15 Gm Bottle) 1 appl TOPICAL QID [facility]; Protocol Last Admin: 06/19/23 08:54 Dose: 1 appl Documented By: KOLTON Ondansetron HCl (Ondansetron Hcl 4 Mg/2 Ml Vial) 4 mg IVPUSH Q8H PRN PRN Reason: Nausea and Vomiting Senna (Sennosides 8.6 Mg Tablet) 17.2 mg PO BEDTIME PRN PRN Reason: Constipation Silver Sulfadiazine (Silver Sulfadiazine 1 % Cream 20 Gm Tube) 1 appl TOPICAL BID [facility] Last Admin: 06/19/23 08:55 Dose: Not Given Documented By: KOLTON Non-Admin Reason: Patient Refused Sodium Chloride (0.9 % Sodium Chloride Flush 3 Ml Syringe) 3 ml IVFLUSH QSHIFT [facility] Last Admin: 06/19/23 08:53 Dose: 3 ml Documented By: KOLTON Labs 06/19/23 05:58 06/19/23 05:58 Labs: Laboratory Results - last 24 hr 06/17/23 06/18/23 06/18/23 22:02 10:04 10:58 MCV MCH MCHC RDW Plt Count MPV Absolute Nucleated RBC Nucleated RBC % (auto) aPTT Heparin Protocol 68.8 Anion Gap Estim Creat Clear Calc Estimated GFR POC Glucose Random Glucose Calcium TSH Stl C. cayetanensis PCR Not Detected Stool Rotavirus A PCR Not Detected Stl Adenov F 40/41 PCR Not Detected Stool Astrovirus (PCR) Not Detected Stool Campylobacter PCR Not Detected Stool Cryptosporidium PCR Not Detected Stl Sh Tox Pr E STEC PCR Not Detected Stool E coli O157 PCR Not applicable Stl Enterotoxigenic E PCR Not Detected Stool EPEC (PCR) Not Detected Stool EAEC (PCR) Not Detected Stl E. histolytica PCR Not Detected Stool Giardia Lamblia PCR Not Detected Stl P. shigelloides PCR Not Detected Stool Salmonella PCR Not Detected Stool Sapovirus (PCR) Not Detected Stl Shigella/EIEC PCR Not Detected St Y.enterocolitica PCR Not Detected Stool Vibrio (PCR) Not Detected Stl Vibrio cholerae PCR Not Detected Stl Norovirus GI/GII PCR Not Detected Blood Type O Positive Antibody Screen NEGATIVE Crossmatch See Detail 06/18/23 06/18/23 06/18/23 10:58 11:11 16:26 MCV MCH MCHC RDW Plt Count MPV Absolute Nucleated RBC Nucleated RBC % (auto) aPTT Heparin Protocol Cancelled Anion Gap Estim Creat Clear Calc Estimated GFR POC Glucose 181 H 164 H Random Glucose Calcium TSH Stl C. cayetanensis PCR Stool Rotavirus A PCR Stl Adenov F 40/41 PCR Stool Astrovirus (PCR) Stool Campylobacter PCR Stool Cryptosporidium PCR Stl Sh Tox Pr E STEC PCR Stool E coli O157 PCR Stl Enterotoxigenic E PCR Stool EPEC (PCR) Stool EAEC (PCR) Stl E. histolytica PCR Stool Giardia Lamblia PCR Stl P. shigelloides PCR Stool Salmonella PCR Stool Sapovirus (PCR) Stl Shigella/EIEC PCR St Y.enterocolitica PCR Stool Vibrio (PCR) Stl Vibrio cholerae PCR Stl Norovirus GI/GII PCR Blood Type Antibody Screen Crossmatch 06/18/23 06/19/23 06/19/23 20:31 05:58 07:00 MCV 92.3 MCH 29.5 MCHC 32.0 RDW 19.0 H Plt Count 296 D MPV 9.0 L Absolute Nucleated RBC 0.000 Nucleated RBC % (auto) 0.0 aPTT Heparin Protocol 58.8 Anion Gap 12 Estim Creat Clear Calc 52.3 Estimated GFR 49 POC Glucose 140 H 138 H Random Glucose 142 H Calcium 9.9 TSH 2.86 Stl C. cayetanensis PCR Stool Rotavirus A PCR Stl Adenov F 40/41 PCR Stool Astrovirus (PCR) Stool Campylobacter PCR Stool Cryptosporidium PCR Stl Sh Tox Pr E STEC PCR Stool E coli O157 PCR Stl Enterotoxigenic E PCR Stool EPEC (PCR) Stool EAEC (PCR) Stl E. histolytica PCR Stool Giardia Lamblia PCR Stl P. shigelloides PCR Stool Salmonella PCR Stool Sapovirus (PCR) Stl Shigella/EIEC PCR St Y.enterocolitica PCR Stool Vibrio (PCR) Stl Vibrio cholerae PCR Stl Norovirus GI/GII PCR Blood Type Antibody Screen Crossmatch Microbiology Microbiology Results: Microbiology 06/17/23 07:38 Blood Culture - Preliminary Blood - Venous No growth after 48 hours. 06/17/23 07:38 Blood Culture - Preliminary Blood - Venous No growth after 48 hours. 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 Keller he recommend to continue anticoagulation and recommend outpatient follow-up with him. #Acute kidney injury- likely prerenal resolved with IV fluids, will avoid nephrotoxins # acute on chronic symptomatic normocytic anemia likely dilutional, no acute GI bleed noted, status post 1 unit of packed RBC hematocrit improved to 25, follow CBC closely. #Non insulin dependent type 2 diabetes with hypoglycemia -hypoglycemia resolved blood sugars in 200-300 range , continue insulin sliding scale -hold glimepiride, and resume jardiance. #Acute diarrhea -x4 episodes in ED, heme negative, likely related to antibiotics, diarrhea resolved. -cdiff negative, gi panel negative #Acute UTI -dx 06/13 with UC positive for ecoli sensitive to ctx, finished course of Ceftin #HTN -bp low normal on adm, antihypertensives, Coreg and losartan, on hold, will resume Coreg low-dose. #Unspecified CHF -euvolemic on exam, received 2.5L in ED -continue lasix am #Hypothyroidism -continue synthroid # morbid obesity recommend low-calorie diet. DVT prophylaxis- found to have ble dvt, on heparin drip per protocol Full code Pt requires continued inpt stay due to hypotension, radha, bilateral dvt requiring close monitoring of VS, renal function/lytes, and heparin drip per protocol as well as expert consultation. Quality Stroke Does the patient have a stroke diagnosis?: No VTE Prior VTE?: Yes VTE Risk Level:: Medical - moderate - high VTE Device Contraindication: Treatment Not Indicated VTE Drug Contraindication: N/A - Med Ordered
[2023-06-19 11:00] LABS: Glucose, Whole Blood 143 mg/dL (60-115)
[2023-06-19 11:04] VITALS: BP 124/58; PULSE 87; RESP 20; TEMP 36.4; O2SAT 95
[2023-06-19] MEDS: Empagliflozin 10 MG TABLET PO (13:03)
[2023-06-19 15:08] VITALS: BP 121/55; PULSE 77; RESP 20; TEMP 36.6; O2SAT 93
[2023-06-19] MEDS: Benzonatate 100 MG CAPSULE 200 MG PO ×2 (15:11→21:46)
--- NOTE | 2023-06-19 16:25 | HO.WOUND ---
Wound Consult Follow up attempted - patient currently in chair unable to stand for assessment. Will attempt assessment at future date and or time.
[2023-06-19 17:01] LABS: Glucose, Whole Blood 111 mg/dL (60-115)
[2023-06-19 17:21] LABS: Glucose, Whole Blood 110 mg/dL (60-115)
[2023-06-19 19:21] VITALS: BP 125/52; PULSE 80; RESP 20; TEMP 36.2; O2SAT 96
[2023-06-19 20:02] LABS: Glucose, Whole Blood 127 mg/dL (60-115)
[2023-06-19] MEDS: Silver Sulfadiazine 1 % Cream 20 GM TUBE 1 APPL TOPICAL (21:42)
[2023-06-19] MEDS: carvediloL 6.25 MG TABLET PO (21:46)
[2023-06-20] VITALS (7 sets, daily range): BP systolic 111–144; BP diastolic 51–64; PULSE 70–86; RESP 16–20; TEMP 36.4–37; O2SAT 91–97
[2023-06-20] MEDS: Levothyroxine Sodium 75 MCG TABLET PO (05:59)
[2023-06-20 06:28] LABS: Hematocrit 25.8 % (37.0-47.0); Hemoglobin 8.1 g/dl (12.0-16.0); Mean Corpuscular HGB Conc 31.4 g/dl (31.0-35.0); Mean Corpuscular Hemoglobin 28.9 pg (27.0-33.0); Mean Corpuscular Volume 92.1 fL (80.0-98.0); Mean Platelet Volume 9.1 fL (9.4-12.3); Platelet Count 343 X10*3/uL (160-400); Red Cell Distribution Width 19.4 % (11.0-16.0); White Blood Count 8.4 X10*3/uL (4.8-10.8)
[2023-06-20 06:43] LABS: PTT Heparin Drip 56.1 SEC (53-77.9)
[2023-06-20 06:44] LABS: Anion Gap 12 (12-20); Blood Urea Nitrogen 29 mg/dL (9-16); Calcium 10.3 mg/dL (8.4-10.2); Carbon Dioxide 23 mmol/L (22-29); Chloride 112 mmol/L (96-108); Creatinine Clr Calc Pharmacy 64.9; Estimated Glomerular Filt Rate > 60; Glucose Random 99 mg/dL (60-115); Potassium 4.7 mmol/L (3.3-5.1); Sodium 142 mmol/L (135-145)
[2023-06-20 06:59] LABS: Glucose, Whole Blood 87 mg/dL (60-115)
[2023-06-20] MEDS: Fluticasone Propionate Nasal 16 GM SPRAY 1 SPRAY NOSTRIL-B ×2 (08:28→21:53)
[2023-06-20] MEDS: Empagliflozin 10 MG TABLET PO (08:30)
[2023-06-20] MEDS: Gabapentin 100 MG CAPSULE 200 MG PO ×2 (08:30→21:51)
[2023-06-20] MEDS: Atorvastatin Calcium 40 MG TABLET PO (08:30)
[2023-06-20] MEDS: Benzonatate 100 MG CAPSULE 200 MG PO ×3 (08:30→21:52)
[2023-06-20] MEDS: carvediloL 6.25 MG TABLET PO (08:30)
[2023-06-20] MEDS: Furosemide 20 MG TABLET PO (08:30)
[2023-06-20] MEDS: Nystatin Powder 15 GM BOTTLE 1 APPL TOPICAL ×4 (08:31→21:53)
[2023-06-20] MEDS: Ammonium Lactate 12 % Lotion 226 GM BOTTLE 1 APPL TOPICAL ×2 (08:31→21:55)
[2023-06-20] MEDS: 0.9 % Sodium Chloride Flush 3 ML SYRINGE IVFLUSH ×2 (08:32→15:34)
[2023-06-20] MEDS: guaiFEN/Codeine SF 200/20/10ML 10 ML LIQUID PO ×3 (08:35→21:52)
--- NOTE | 2023-06-20 10:04 | HO.WOUND ---
Wound Consult: Follow up 77yr old?F admitted to [facility] on 06/17/23 - See progress notes and H&P for detailed history.? Wound consult placed for sacral wound POA.? Patient agreeable to assessment and photo documentation - patient states she is aware of the wound to her sacrum and she reports her aide at her home takes care of it with Medline Zinc cream . She reports she does not sleep in a bed but rather her specialized recliner chair, she reports several falls from her chair she feels that have impacted the wound development. This may explain the irregular boarders of the Deep Tissue Injury. We discussed off loading and limiting sit time to 2 hour increments. We discussed Triad cream and foam application - she reports understanding. Of note patient is incontinent frequently of urine - it is unclear how the patient effectively manages this at home. Discussed barrier cream and changing frequently. The Left Inner thigh was noted for a intact serous filled blister - treated with xeroform and foam dressing to protect and provide moist wound healing. Of note the patient reports being constipated - her anus is observed to be patulous and is evidence to support chronic constipation. Anus assessed - no firm stool felt and anal tone not assessed. Pt reports she would be agreeable to en enema for relief in constipation. Direct care nurse will reach out to provider to provider. Sacrum Etiology: Deep tissue Injury in Evolution - ??Present on Admission See charting for measurements Wound Bed: dark purple irregular boarders with scattered areas of partial thickness tissue loss Edges: ?irregular edges - may be explained by Heparin drip in place and platelet count however remains over a bony prominence and pt reports sitting for extended periods of time Goals of Treatment: ? Triad and foam application to protect from moisture and friction and allow for moist wound healing Recommendations: 1. Turn and Reposition every 2 hours and as needed for patient comfort.? Use pillows or wedges to support off loading positions. Waffle cushion provided for use in recliner chair - limit sit time to 2 hour increments. 2. Off Load all bony prominences with use of pillows and heel boots if needed.? Apply Preventative foams where needed. ? 3. Monitor for incontinence and moisture control, use barrier creams when needed for prevention and treatment. 4. Provide adequate and supplemental nutrition.? 5. Order low air loss mattress. 6. When applicable maintain blood glucose levels per Providers order. 7. Sacrum -Off Load Pressure - Cleanse with PH balance spray or wipes, pat dry. ?Apply thin layer of Triad to wound bed. Do not remove all of paste between applications as this may cause further skin damage.? Cover with foam dressing to aid in off loading and protection from friction. 8. Left Inner Thigh - PH balanced cleanser, pat dry. cover blister with xeroform and foam dressing. Change daily and PRN. Re-consult wound care Nurse for wound deterioration or wound changes.
[2023-06-20 10:58] LABS: Glucose, Whole Blood 132 mg/dL (60-115)
[2023-06-20] MEDS: polyethylene glycoL 3350 17 GM POWD.PACK PO (11:42)
[2023-06-20] MEDS: Rivaroxaban 15 MG TABLET PO ×2 (11:47→17:12)
--- NOTE | 2023-06-20 12:33 | HO.PM.IMPN ---
Subjective Subjective Date of Service: 06/20/23 Interval History: Being followed for DVT, no GI bleed noted, denies chest pain, no shortness of breath, no palpitations, tolerating diet no nausea, no vomiting, no abdominal pain complaining of constipation. Review of Systems All other system reviewed and negative Physical Exam Vital Signs: Vital Signs: Last Vital Signs Temp 98.4 F 06/20/23 11:02 Pulse 76 06/20/23 11:02 Resp 20 06/20/23 11:02 BP 144/64 H 06/20/23 11:02 Pulse Ox 97 06/20/23 11:02 O2 Del Method Room Air 06/20/23 11:02 BMI result Body Mass Index 53.7 Const: Other: General awake alert x3, resting comfortably in no acute distress. Neck supple no JVD. CVS regular rate rhythm, Respiratory lungs clear to auscultation, no respiratory distress, no wheeze, no rhonchi. Gastrointestinal abdomen soft, non tender, bowel sounds audible, no guarding , no rigidity. Extremities bilateral 3+ pitting edema both lower extremities. Mild erythema right lower extremity improving. Neuro non focal Skin warm and dry. Psych appropriate affect. Objective Data Active Medications Acetaminophen (Acetaminophen 325 Mg Tablet) 650 mg PO Q6H PRN PRN Reason: Pain, Mild (Pain Scale 1-3) Last Admin: 06/19/23 05:05 Dose: 650 mg Documented By: YAKELIN Atorvastatin Calcium (Atorvastatin Calcium 40 Mg Tablet) 40 mg PO DAILY [facility] Last Admin: 06/20/23 08:30 Dose: 40 mg Documented By: JORGE Benzonatate (Benzonatate 100 Mg Capsule) 200 mg PO TID [facility] Last Admin: 06/20/23 08:30 Dose: 200 mg Documented By: JORGE Carvedilol (Carvedilol 6.25 Mg Tablet) 6.25 mg PO BID [facility]; Protocol Last Admin: 06/20/23 08:30 Dose: 6.25 mg Documented By: JORGE Dextrose (Dextrose 50 % 25 Gm/50 Ml Syringe) 25 gm IVPUSH Q15M PRN; Protocol PRN Reason: per Hypoglycemia Standing Ord. Docusate Sodium (Docusate Sodium 100 Mg Capsule) 100 mg PO BEDTIME [facility] Empagliflozin (Empagliflozin 10 Mg Tablet) 10 mg PO DAILY [facility] Last Admin: 06/20/23 08:30 Dose: 10 mg Documented By: JORGE Fluticasone Propionate (Fluticasone Propionate Nasal 16 Gm [place]) 1 spray NOSTRIL-B BID [facility] Last Admin: 06/20/23 08:28 Dose: 1 spray Documented By: JORGE Furosemide (Furosemide 20 Mg Tablet) 20 mg PO DAILY [facility]; Protocol Last Admin: 06/20/23 08:30 Dose: 20 mg Documented By: JORGE Gabapentin (Gabapentin 100 Mg Capsule) 200 mg PO BID [facility] Last Admin: 06/20/23 08:30 Dose: 200 mg Documented By: JORGE Glucose (Glucose Gel 15 Gm Gel..Gram.) 15 gm PO Q15M PRN; Protocol PRN Reason: per Hypoglycemia Standing Ord. Guaifenesin/Codeine Phosphate (Guaifen/Codeine Sf 200/20/10ml 10 Ml Liquid) 10 ml PO Q6H PRN PRN Reason: cough Last Admin: 06/20/23 08:35 Dose: 10 ml Documented By: JORGE Insulin Human Lispro (Insulin Lispro 100 Unit/Ml 3 Ml Vial) 0 unit SUBCUT QIDACHS [facility]; Protocol Last Admin: 06/20/23 11:40 Dose: Not Given Documented By: MURIEL Non-Admin Reason: No Insulin Coverage Lactic Acid (Ammonium Lactate 12 % Lotion 226 Gm Bottle) 1 appl TOPICAL TID [facility]; Protocol Last Admin: 06/20/23 08:31 Dose: 1 appl Documented By: JORGE Levothyroxine Sodium (Levothyroxine Sodium 75 Mcg Tablet) 75 mcg PO DAILY@0600 [facility] Last Admin: 06/20/23 05:59 Dose: 75 mcg Documented By: CONSTANZA Nystatin (Nystatin Powder 15 Gm Bottle) 1 appl TOPICAL QID [facility]; Protocol Last Admin: 06/20/23 11:47 Dose: 1 appl Documented By: MURIEL Ondansetron HCl (Ondansetron Hcl 4 Mg/2 Ml Vial) 4 mg IVPUSH Q8H PRN PRN Reason: Nausea and Vomiting Polyethylene Glycol (Polyethylene Glycol 3350 17 Gm Powd.Pack) 17 gm PO DAILY [facility] Last Admin: 06/20/23 11:42 Dose: 17 gm Documented By: MURIEL Rivaroxaban (Rivaroxaban 15 Mg Tablet) 15 mg PO BIDWM [facility] Last Admin: 06/20/23 11:47 Dose: 15 mg Documented By: MURIEL Senna (Sennosides 8.6 Mg Tablet) 17.2 mg PO BEDTIME PRN PRN Reason: Constipation Silver Sulfadiazine (Silver Sulfadiazine 1 % Cream 20 Gm Tube) 1 appl TOPICAL BID [facility] Last Admin: 06/20/23 08:31 Dose: Not Given Documented By: JORGE Non-Admin Reason: Patient Refused Sodium Chloride (0.9 % Sodium Chloride Flush 3 Ml Syringe) 3 ml IVFLUSH QSHIFT [facility] Last Admin: 06/20/23 08:32 Dose: 3 ml Documented By: JORGE Labs 06/20/23 06:04 06/20/23 06:04 Labs: Laboratory Results - last 24 hr 06/19/23 06/19/23 06/19/23 16:53 17:18 19:57 MCV MCH MCHC RDW Plt Count MPV Absolute Nucleated RBC Nucleated RBC % (auto) aPTT Heparin Protocol Anion Gap Estim Creat Clear Calc Estimated GFR POC Glucose 111 110 127 H Random Glucose Calcium 06/20/23 06/20/23 06/20/23 06:04 06:53 10:54 MCV 92.1 MCH 28.9 MCHC 31.4 RDW 19.4 H Plt Count 343 MPV 9.1 L Absolute Nucleated RBC 0.000 Nucleated RBC % (auto) 0.0 aPTT Heparin Protocol 56.1 Anion Gap 12 Estim Creat Clear Calc 64.9 Estimated GFR > 60 POC Glucose 87 132 H Random Glucose 99 Calcium 10.3 H Microbiology Microbiology Results: Microbiology 06/17/23 07:38 Blood Culture - Preliminary Blood - Venous No growth after 48 hours. 06/17/23 07:38 Blood Culture - Preliminary Blood - Venous No growth after 48 hours. Assessment and Plan (1) DVT of lower extremity, bilateral: Status: Acute (2) Hypotension: Status: Acute (3) Hypoglycemia: Status: Acute Plan 77 year old female with history non insulin dependent type 2 diabetes, htn, unspecified CHF, hx dvt not on ac, hypothyroidism admitted for hypotension and hypoglycemia #Acute hypotension- history of hypertension hypotension resolved , bp improved -no sepsis -status post 2.5 L of IV fluids and albumin -continue low-dose Coreg 12.5 mg b.i.d.,(home dose 25 mg b.i.d.),losartan on hold, monitor BP #Acute on Chronic bilateral DVT -h/o dvt s/p IVC filter previously on xarelto dc'd 3 weeks ago due to GI bleed -no recent travel, has history of recent hospitalization without AC due to GI bleed (dc [facility] on 05/31) -on iv heparin drip per protocol,stool occult blood negative, no active bleeding noted, had recent LGIB (due to AVM per patient) admitted at [facility] -cta chest negative for PE -seen by Dr. Keller he recommend to continue anticoagulation and recommend outpatient follow-up with him. -will DC IV heparin and place patient on Xarelto 15 mg b.i.d. times 21 days followed by 20 mg by mouth daily #Acute kidney injury- likely prerenal resolved with IV fluids, will avoid nephrotoxins # acute on chronic symptomatic normocytic anemia likely dilutional, no acute GI bleed noted, status post 1 unit of packed RBC hematocrit improved to 25, follow CBC closely. #Non insulin dependent type 2 diabetes with hypoglycemia -hypoglycemia resolved blood sugars in 200-300 range , continue insulin sliding scale -hold glimepiride, and resume jardiance. #Acute diarrhea Resolved,cdiff negative, gi panel negative, now constipated will place on MiraLax #Acute UTI -dx 06/13 with UC positive for ecoli sensitive to ctx, finished course of Ceftin #Unspecified CHF -euvolemic on exam, received 2.5L in ED,continue lasix am #Hypothyroidism -continue synthroid # morbid obesity recommend low-calorie diet. # disposition seen by Physical therapy they recommend home with service DVT prophylaxis- on Xarelto Full code Pt requires continued inpt stay due to hypotension, bilateral DVT transition to oral anticoagulation need CBC monitoring and safe disposition Quality Stroke Does the patient have a stroke diagnosis?: No VTE Prior VTE?: Yes VTE Risk Level:: Medical - moderate - high VTE Device Contraindication: Treatment Not Indicated VTE Drug Contraindication: N/A - Med Ordered
[2023-06-20 15:44] LABS: Glucose, Whole Blood 140 mg/dL (60-115)
[2023-06-20 20:17] LABS: Glucose, Whole Blood 169 mg/dL (60-115)
[2023-06-20] MEDS: Docusate Sodium 100 MG CAPSULE PO (21:52)
[2023-06-20] MEDS: carvediloL 12.5 MG TABLET PO (21:52)
[2023-06-20] MEDS: Insulin Lispro 100 UNIT/ML 3 ML VIAL SUBCUT (21:52)
[2023-06-20] MEDS: Silver Sulfadiazine 1 % Cream 20 GM TUBE 1 APPL TOPICAL (21:53)
[2023-06-21] VITALS (11 sets, daily range): BP systolic 113–136; BP diastolic 44–68; PULSE 62–79; RESP 16–20; TEMP 36.2–36.8; O2SAT 93–97
[2023-06-21] MEDS: 0.9 % Sodium Chloride Flush 3 ML SYRINGE IVFLUSH ×4 (01:32→22:09)
[2023-06-21] MEDS: guaiFEN/Codeine SF 200/20/10ML 10 ML LIQUID PO ×3 (04:12→18:30)
[2023-06-21 06:10] LABS: Hematocrit 25.2 % (37.0-47.0); Hemoglobin 7.8 g/dl (12.0-16.0); Mean Corpuscular Hemoglobin 28.7 pg (27.0-33.0); Mean Corpuscular Volume 92.6 fL (80.0-98.0); NRBC Pct Auto 0.2 /100WBC (0.0-0.2); Platelet Count 374 X10*3/uL (160-400); Red Blood Count 2.72 X10*6/uL (4.20-5.50); Red Cell Distribution Width 19.1 % (11.0-16.0); White Blood Count 8.3 X10*3/uL (4.8-10.8)
[2023-06-21] MEDS: Levothyroxine Sodium 75 MCG TABLET PO (06:12)
[2023-06-21 06:24] LABS: Anion Gap 11 (12-20); Blood Urea Nitrogen 25 mg/dL (9-16); Calcium 10.1 mg/dL (8.4-10.2); Carbon Dioxide 23 mmol/L (22-29); Chloride 111 mmol/L (96-108); Estimated Glomerular Filt Rate > 60; Glucose Random 124 mg/dL (60-115); Potassium 4.5 mmol/L (3.3-5.1); Sodium 140 mmol/L (135-145)
[2023-06-21 06:58] LABS: Glucose, Whole Blood 124 mg/dL (60-115)
[2023-06-21] MEDS: Nystatin Powder 15 GM BOTTLE 1 APPL TOPICAL ×3 (08:53→17:12)
[2023-06-21] MEDS: Benzonatate 100 MG CAPSULE 200 MG PO ×3 (09:17→22:00)
[2023-06-21] MEDS: Atorvastatin Calcium 40 MG TABLET PO (09:17)
[2023-06-21] MEDS: Rivaroxaban 15 MG TABLET PO ×2 (09:17→17:11)
[2023-06-21] MEDS: polyethylene glycoL 3350 17 GM POWD.PACK PO (09:17)
[2023-06-21] MEDS: Empagliflozin 10 MG TABLET PO (09:17)
[2023-06-21] MEDS: Gabapentin 100 MG CAPSULE 200 MG PO ×2 (09:17→21:59)
[2023-06-21] MEDS: Furosemide 20 MG TABLET PO (09:18)
[2023-06-21] MEDS: carvediloL 12.5 MG TABLET PO ×2 (09:18→22:00)
[2023-06-21] MEDS: Ammonium Lactate 12 % Lotion 226 GM BOTTLE 1 APPL TOPICAL ×3 (09:23→22:14)
[2023-06-21] MEDS: Acetaminophen 325 MG TABLET 650 MG PO (09:23)
[2023-06-21] MEDS: Silver Sulfadiazine 1 % Cream 20 GM TUBE 1 APPL TOPICAL (09:24)
--- NOTE | 2023-06-21 10:13 | MHC.CM.PN ---
Per ROUNDS discussion, Patient is not yet medically cleared for dc (Hypotension); home/resume services is the goal and CM will continue to follow.
[2023-06-21 10:59] LABS: Glucose, Whole Blood 199 mg/dL (60-115)
[2023-06-21] MEDS: Fluticasone Propionate Nasal 16 GM SPRAY 1 SPRAY NOSTRIL-B ×2 (12:52→22:31)
[2023-06-21] MEDS: Insulin Lispro 100 UNIT/ML 3 ML VIAL SUBCUT ×3 (12:55→22:15)
--- NOTE | 2023-06-21 16:33 | HO.PM.IMPN ---
Subjective Subjective Date of Service: 06/21/23 Interval History: Still feels somewhat weak. No acute issues Review of Systems Denies chest pain Denies shortness of breath Denies nausea vomiting diarrhea Denies fever chills Physical Exam Vital Signs: Vital Signs: Last Vital Signs Temp 97.4 F 06/21/23 15:28 Pulse 62 06/21/23 15:28 Resp 18 06/21/23 15:28 BP 117/44 L 06/21/23 15:28 Pulse Ox 95 06/21/23 15:28 O2 Del Method Room Air 06/21/23 15:28 BMI result Body Mass Index 53.7 Const: Other: Awake alert no acute distress Resp: Other: Clear to auscultation bilaterally no rales rhonchi or wheezes Cardio: Other: No S4; positive S1-S2; no S3 murmurs rubs or gallops GI: Other: Soft nontender nondistended normoactive bowel sounds Extrem: Other: Bilateral edema Objective Data Active Medications Acetaminophen (Acetaminophen 325 Mg Tablet) 650 mg PO Q6H PRN PRN Reason: Pain, Mild (Pain Scale 1-3) Last Admin: 06/21/23 09:23 Dose: 650 mg Documented By: SUSHANT Atorvastatin Calcium (Atorvastatin Calcium 40 Mg Tablet) 40 mg PO DAILY [facility] Last Admin: 06/21/23 09:17 Dose: 40 mg Documented By: SUSHANT Benzonatate (Benzonatate 100 Mg Capsule) 200 mg PO TID [facility] Last Admin: 06/21/23 15:07 Dose: 200 mg Documented By: SUSHANT Carvedilol (Carvedilol 12.5 Mg Tablet) 12.5 mg PO BID [facility]; Protocol Last Admin: 06/21/23 09:18 Dose: 12.5 mg Documented By: SUSHANT Dextrose (Dextrose 50 % 25 Gm/50 Ml Syringe) 25 gm IVPUSH Q15M PRN; Protocol PRN Reason: per Hypoglycemia Standing Ord. Docusate Sodium (Docusate Sodium 100 Mg Capsule) 100 mg PO BEDTIME [facility] Last Admin: 06/20/23 21:52 Dose: 100 mg Documented By: DOKYLEIGH Empagliflozin (Empagliflozin 10 Mg Tablet) 10 mg PO DAILY [facility] Last Admin: 06/21/23 09:17 Dose: 10 mg Documented By: SUSHANT Fluticasone Propionate (Fluticasone Propionate Nasal 16 Gm [place]) 1 spray NOSTRIL-B BID [facility] Last Admin: 06/21/23 12:52 Dose: 1 spray Documented By: SUSHANT Furosemide (Furosemide 20 Mg Tablet) 20 mg PO DAILY [facility]; Protocol Last Admin: 06/21/23 09:18 Dose: 20 mg Documented By: SUSHANT Gabapentin (Gabapentin 100 Mg Capsule) 200 mg PO BID [facility] Last Admin: 06/21/23 09:17 Dose: 200 mg Documented By: SUSHANT Glucose (Glucose Gel 15 Gm Gel..Gram.) 15 gm PO Q15M PRN; Protocol PRN Reason: per Hypoglycemia Standing Ord. Guaifenesin/Codeine Phosphate (Guaifen/Codeine Sf 200/20/10ml 10 Ml Liquid) 10 ml PO Q6H PRN PRN Reason: cough Last Admin: 06/21/23 09:24 Dose: 10 ml Documented By: SUSHANT Insulin Human Lispro (Insulin Lispro 100 Unit/Ml 3 Ml Vial) 0 unit SUBCUT QIDACHS [facility]; Protocol Last Admin: 06/21/23 12:55 Dose: 2 unit Documented By: SUSHANT Lactic Acid (Ammonium Lactate 12 % Lotion 226 Gm Bottle) 1 appl TOPICAL TID [facility]; Protocol Last Admin: 06/21/23 14:46 Dose: 1 appl Documented By: SUSHANT Levothyroxine Sodium (Levothyroxine Sodium 75 Mcg Tablet) 75 mcg PO DAILY@0600 [facility] Last Admin: 06/21/23 06:12 Dose: 75 mcg Documented By: BROYoanna Nystatin (Nystatin Powder 15 Gm Bottle) 1 appl TOPICAL QID [facility]; Protocol Last Admin: 06/21/23 12:58 Dose: 1 appl Documented By: SUSHANT Ondansetron HCl (Ondansetron Hcl 4 Mg/2 Ml Vial) 4 mg IVPUSH Q8H PRN PRN Reason: Nausea and Vomiting Polyethylene Glycol (Polyethylene Glycol 3350 17 Gm Powd.Pack) 17 gm PO DAILY [facility] Last Admin: 06/21/23 09:17 Dose: 17 gm Documented By: SUHSANT Rivaroxaban (Rivaroxaban 15 Mg Tablet) 15 mg PO BIDWM [facility] Last Admin: 06/21/23 09:17 Dose: 15 mg Documented By: SUSHANT Senna (Sennosides 8.6 Mg Tablet) 17.2 mg PO BEDTIME PRN PRN Reason: Constipation Silver Sulfadiazine (Silver Sulfadiazine 1 % Cream 20 Gm Tube) 1 appl TOPICAL BID [facility] Last Admin: 06/21/23 09:24 Dose: 1 appl Documented By: SUSHANT Sodium Chloride (0.9 % Sodium Chloride Flush 3 Ml Syringe) 3 ml IVFLUSH QSHIFT [facility] Last Admin: 06/21/23 15:07 Dose: 3 ml Documented By: SUSHANT Labs 06/21/23 05:43 06/21/23 05:43 Labs: Laboratory Results - last 24 hr 06/18/23 06/20/23 06/21/23 10:04 20:07 05:43 MCV 92.6 MCH 28.7 MCHC 31.0 RDW 19.1 H Plt Count 374 MPV 9.0 L Absolute Nucleated RBC 0.020 H Nucleated RBC % (auto) 0.2 Anion Gap 11 L Estim Creat Clear Calc 68.0 Estimated GFR > 60 POC Glucose 169 H Random Glucose 124 H Calcium 10.1 Blood Type Antibody Screen Crossmatch See Detail 06/21/23 06/21/23 06/21/23 06:53 10:53 13:51 MCV MCH MCHC RDW Plt Count MPV Absolute Nucleated RBC Nucleated RBC % (auto) Anion Gap Estim Creat Clear Calc Estimated GFR POC Glucose 124 H 199 H Random Glucose Calcium Blood Type O Positive Antibody Screen NEGATIVE Crossmatch See Detail Assessment and Plan (1) DVT of lower extremity, bilateral: Status: Acute (2) Type 2 diabetes mellitus: Status: Acute Plan 77 year old female with history non insulin dependent type 2 diabetes, htn, unspecified CHF, hx dvt not on ac, hypothyroidism admitted for hypotension and hypoglycemia. Records reviewed; recently at [facility] and received 8 units of packed red cells secondary to an AVM bleed. [place] [facility] [place] acute on chronic/worsening lower extremity DVTs. 1.Acute on Chronic bilateral DVT H/o dvt s/p IVC filter previously on xarelto dc'd 3 weeks ago due to GI bleed; Xarelto restarted however hemoglobin trending downward. -will transfuse 2 units of packed red cells -follow daily CBCs; will follow 24-48 hours after CBC in a.m. to demonstrate stabilization on Xarelto 2. Acute on chronic anemia; slight trend downward on Xarelto -as above 3.Non insulin dependent type 2 diabetes with hypoglycemia Sugars improved since admission. Tolerating diet without issues -acceptable control; Jardiance added back -lispro correctional scale -adjust as indicated 4.Acute UTI -completed course of Ceftin Xarelto Full code Requires ongoing hospitalization to complete blood transfusion and monitor stability a CBC given need for anticoagulation Quality Stroke Does the patient have a stroke diagnosis?: No VTE Prior VTE?: Yes VTE Risk Level:: Medical - moderate - high VTE Device Contraindication: Treatment Not Indicated VTE Drug Contraindication: N/A - Med Ordered
[2023-06-21 16:35] LABS: Glucose, Whole Blood 184 mg/dL (60-115)
[2023-06-21] MEDS: Furosemide 20 MG/2 ML VIAL IVPUSH (18:07)
[2023-06-21 20:48] LABS: Glucose, Whole Blood 174 mg/dL (60-115)
[2023-06-21] MEDS: Docusate Sodium 100 MG CAPSULE PO (22:31)
[2023-06-22] VITALS (8 sets, daily range): BP systolic 106–143; BP diastolic 46–69; PULSE 63–80; RESP 16–24; TEMP 36.4–36.9; O2SAT 95–97
[2023-06-22 06:08] LABS: MANUAL DIFF FLAG NO
[2023-06-22 06:12] LABS: Basophils Absolute Auto 0.1 X10*3/uL (0.0-0.2); Basophils Percent Auto 0.9 % (0-2); Eosinophils Absolute Auto 0.3 X10*3/uL (0.0-0.4); Eosinophils Percent Auto 3.9 % (0-4); Hematocrit 32.7 % (37.0-47.0); Hemoglobin 10.3 g/dl (12.0-16.0); Imm Gran Abs Auto 0.15 X10*3/uL (0.00-0.03); Imm Gran Pct Auto 1.8 % (0.0-0.4); Lymphocytes Absolute Auto 1.7 X10*3/uL (1.2-4.9); Lymphocytes Percent Auto 20.9 % (20-40); Mean Corpuscular HGB Conc 31.5 g/dl (31.0-35.0); Mean Corpuscular Hemoglobin 29.6 pg (27.0-33.0); Monocytes Absolute Auto 0.8 X10*3/uL (0.1-1.2); Monocytes Percent Auto 9.2 % (2-11); NRBC Pct Auto 0.5 /100WBC (0.0-0.2); Neutrophils Absolute Auto 5.1 x10*3/uL (2.0-8.3); Neutrophils Percent Auto 63.3 % (45-73); Platelet Count 420 X10*3/uL (160-400); Red Blood Count 3.48 X10*6/uL (4.20-5.50); Red Cell Distribution Width 18.4 % (11.0-16.0); White Blood Count 8.1 X10*3/uL (4.8-10.8)
[2023-06-22 06:25] LABS: Alanine Aminotransferase 27 U/L (0-31); Albumin Level 3.3 g/dL (3.5-5.0); Alkaline Phosphatase 100 U/L (39-117); Anion Gap 11 (12-20); Aspartate Amino Transferase 18 U/L (5-31); Bilirubin Total 1.6 mg/dL (0.0-1.0); Blood Urea Nitrogen 21 mg/dL (9-16); Calcium 10.1 mg/dL (8.4-10.2); Carbon Dioxide 25 mmol/L (22-29); Chloride 110 mmol/L (96-108); Creatinine Clr Calc Pharmacy 70.6; Estimated Glomerular Filt Rate > 60; Glucose Fasting 147 mg/dL (60-99); Sodium 142 mmol/L (135-145); Total Protein 6.4 g/dL (6.5-8.0)
[2023-06-22] MEDS: Acetaminophen 325 MG TABLET 650 MG PO ×2 (07:04→22:03)
[2023-06-22] MEDS: Levothyroxine Sodium 75 MCG TABLET PO (07:05)
[2023-06-22] MEDS: guaiFEN/Codeine SF 200/20/10ML 10 ML LIQUID PO ×4 (07:05→22:07)
[2023-06-22 07:33] LABS: Glucose, Whole Blood 133 mg/dL (60-115)
[2023-06-22] MEDS: Benzonatate 100 MG CAPSULE 200 MG PO ×3 (09:20→22:02)
[2023-06-22] MEDS: Atorvastatin Calcium 40 MG TABLET PO (09:20)
[2023-06-22] MEDS: Furosemide 20 MG TABLET PO (09:20)
[2023-06-22] MEDS: Rivaroxaban 15 MG TABLET PO ×2 (09:21→17:10)
[2023-06-22] MEDS: Empagliflozin 10 MG TABLET PO (09:21)
[2023-06-22] MEDS: polyethylene glycoL 3350 17 GM POWD.PACK PO (09:21)
[2023-06-22] MEDS: carvediloL 12.5 MG TABLET PO ×2 (09:21→22:04)
[2023-06-22] MEDS: Ammonium Lactate 12 % Lotion 226 GM BOTTLE 1 APPL TOPICAL ×3 (09:21→22:17)
[2023-06-22] MEDS: Fluticasone Propionate Nasal 16 GM SPRAY 1 SPRAY NOSTRIL-B ×2 (09:21→22:10)
[2023-06-22] MEDS: Gabapentin 100 MG CAPSULE 200 MG PO ×2 (09:21→22:03)
[2023-06-22] MEDS: 0.9 % Sodium Chloride Flush 3 ML SYRINGE IVFLUSH ×3 (09:23→22:22)
[2023-06-22] MEDS: Nystatin Powder 15 GM BOTTLE 1 APPL TOPICAL ×4 (09:35→22:13)
[2023-06-22 11:34] LABS: Glucose, Whole Blood 194 mg/dL (60-115)
[2023-06-22] MEDS: Insulin Lispro 100 UNIT/ML 3 ML VIAL SUBCUT ×3 (11:43→22:08)
--- NOTE | 2023-06-22 12:13 | HO.PM.IMPN ---
Subjective Subjective Date of Service: 06/22/23 Interval History: No problems with transfusion; good response. Still feels weak Review of Systems Denies chest pain Denies shortness of breath Denies nausea vomiting diarrhea Denies fever chills Physical Exam Vital Signs: Vital Signs: Last Vital Signs Temp 97.6 F 06/22/23 11:13 Pulse 65 06/22/23 11:13 Resp 18 06/22/23 11:13 BP 116/58 L 06/22/23 11:13 Pulse Ox 95 06/22/23 11:13 O2 Del Method Room Air 06/22/23 11:13 BMI result Body Mass Index 53.7 Const: Other: Awake alert no acute distress Resp: Other: Clear to auscultation bilaterally no rales rhonchi or wheezes Cardio: Other: No S4; positive S1-S2; no S3 murmurs rubs or gallops GI: Other: Soft nontender nondistended normoactive bowel sounds Extrem: Other: Bilateral edema Objective Data Active Medications Acetaminophen (Acetaminophen 325 Mg Tablet) 650 mg PO Q6H PRN PRN Reason: Pain, Mild (Pain Scale 1-3) Last Admin: 06/22/23 07:04 Dose: 650 mg Documented By: DEIDRE Atorvastatin Calcium (Atorvastatin Calcium 40 Mg Tablet) 40 mg PO DAILY [facility] Last Admin: 06/22/23 09:20 Dose: 40 mg Documented By: ESTEBAN Benzonatate (Benzonatate 100 Mg Capsule) 200 mg PO TID [facility] Last Admin: 06/22/23 09:20 Dose: 200 mg Documented By: ESTEBAN Carvedilol (Carvedilol 12.5 Mg Tablet) 12.5 mg PO BID [facility]; Protocol Last Admin: 06/22/23 09:21 Dose: 12.5 mg Documented By: ESTEBAN Dextrose (Dextrose 50 % 25 Gm/50 Ml Syringe) 25 gm IVPUSH Q15M PRN; Protocol PRN Reason: per Hypoglycemia Standing Ord. Docusate Sodium (Docusate Sodium 100 Mg Capsule) 100 mg PO BEDTIME [facility] Last Admin: 06/21/23 22:31 Dose: 100 mg Documented By: DEIDRE Empagliflozin (Empagliflozin 10 Mg Tablet) 10 mg PO DAILY [facility] Last Admin: 06/22/23 09:21 Dose: 10 mg Documented By: ESTEBAN Fluticasone Propionate (Fluticasone Propionate Nasal 16 Gm [place]) 1 spray NOSTRIL-B BID [facility] Last Admin: 06/22/23 09:21 Dose: 1 spray Documented By: ESTEBAN Furosemide (Furosemide 20 Mg Tablet) 20 mg PO DAILY [facility]; Protocol Last Admin: 06/22/23 09:20 Dose: 20 mg Documented By: ESTEBAN Gabapentin (Gabapentin 100 Mg Capsule) 200 mg PO BID [facility] Last Admin: 06/22/23 09:21 Dose: 200 mg Documented By: ESTEBAN Glucose (Glucose Gel 15 Gm Gel..Gram.) 15 gm PO Q15M PRN; Protocol PRN Reason: per Hypoglycemia Standing Ord. Guaifenesin/Codeine Phosphate (Guaifen/Codeine Sf 200/20/10ml 10 Ml Liquid) 10 ml PO Q6H PRN PRN Reason: cough Last Admin: 06/22/23 07:05 Dose: 10 ml Documented By: DEIDRE Guaifenesin/Codeine Phosphate (Guaifen/Codeine Sf 200/20/10ml 10 Ml Liquid) 10 ml PO Q4H PRN PRN Reason: cough Last Admin: 06/22/23 11:44 Dose: 10 ml Documented By: ESTEBAN Insulin Human Lispro (Insulin Lispro 100 Unit/Ml 3 Ml Vial) 0 unit SUBCUT QIDACHS [facility]; Protocol Last Admin: 06/22/23 11:43 Dose: 2 unit Documented By: ESTEBAN Lactic Acid (Ammonium Lactate 12 % Lotion 226 Gm Bottle) 1 appl TOPICAL TID [facility]; Protocol Last Admin: 06/22/23 09:21 Dose: 1 appl Documented By: ESTEBAN Levothyroxine Sodium (Levothyroxine Sodium 75 Mcg Tablet) 75 mcg PO DAILY@0600 [facility] Last Admin: 06/22/23 07:05 Dose: 75 mcg Documented By: DEIDRE Nystatin (Nystatin Powder 15 Gm Bottle) 1 appl TOPICAL QID [facility]; Protocol Last Admin: 06/22/23 11:45 Dose: 1 appl Documented By: ESTEBAN Ondansetron HCl (Ondansetron Hcl 4 Mg/2 Ml Vial) 4 mg IVPUSH Q8H PRN PRN Reason: Nausea and Vomiting Polyethylene Glycol (Polyethylene Glycol 3350 17 Gm Powd.Pack) 17 gm PO DAILY [facility] Last Admin: 06/22/23 09:21 Dose: 17 gm Documented By: ESTEBAN Rivaroxaban (Rivaroxaban 15 Mg Tablet) 15 mg PO BIDWM [facility] Last Admin: 06/22/23 09:21 Dose: 15 mg Documented By: ESTEBAN Senna (Sennosides 8.6 Mg Tablet) 17.2 mg PO BEDTIME PRN PRN Reason: Constipation Silver Sulfadiazine (Silver Sulfadiazine 1 % Cream 20 Gm Tube) 1 appl TOPICAL BID [facility] Last Admin: 06/22/23 09:36 Dose: Not Given Documented By: ESTEBAN Non-Admin Reason: pt reports no longer use Sodium Chloride (0.9 % Sodium Chloride Flush 3 Ml Syringe) 3 ml IVFLUSH QSHIFT [facility] Last Admin: 06/22/23 09:23 Dose: 3 ml Documented By: ESTEBAN Labs 06/22/23 05:25 06/22/23 05:25 Labs: Laboratory Results - last 24 hr 06/18/23 06/21/23 06/21/23 10:04 13:51 16:28 MCV MCH MCHC RDW Plt Count MPV Immature Gran % (Auto) Neut % (Auto) Lymph % (Auto) [place] % (Auto) Eos % (Auto) Baso % (Auto) Lymph # (Auto) [place] # (Auto) Eos # (Auto) Baso # (Auto) Abs Immat Gran (auto) Absolute Neuts (auto) Absolute Nucleated RBC Nucleated RBC % (auto) Anion Gap Estim Creat Clear Calc Estimated GFR POC Glucose 184 H Fasting Glucose Calcium Total Bilirubin AST ALT Alkaline Phosphatase Total Protein Albumin Blood Type O Positive Antibody Screen NEGATIVE Crossmatch See Detail See Detail 06/21/23 06/22/23 06/22/23 20:44 05:25 07:28 MCV 94.0 MCH 29.6 MCHC 31.5 RDW 18.4 H Plt Count 420 H MPV 9.0 L Immature Gran % (Auto) 1.8 H Neut % (Auto) 63.3 Lymph % (Auto) 20.9 [place] % (Auto) 9.2 Eos % (Auto) 3.9 Baso % (Auto) 0.9 Lymph # (Auto) 1.7 [place] # (Auto) 0.8 Eos # (Auto) 0.3 Baso # (Auto) 0.1 Abs Immat Gran (auto) 0.15 H Absolute Neuts (auto) 5.1 Absolute Nucleated RBC 0.040 H Nucleated RBC % (auto) 0.5 H Anion Gap 11 L Estim Creat Clear Calc 70.6 Estimated GFR > 60 POC Glucose 174 H 133 H Fasting Glucose 147 H Calcium 10.1 Total Bilirubin 1.6 H AST 18 ALT 27 Alkaline Phosphatase 100 Total Protein 6.4 L Albumin 3.3 L Blood Type Antibody Screen Crossmatch 06/22/23 11:16 MCV MCH MCHC RDW Plt Count MPV Immature Gran % (Auto) Neut % (Auto) Lymph % (Auto) [place] % (Auto) Eos % (Auto) Baso % (Auto) Lymph # (Auto) [place] # (Auto) Eos # (Auto) Baso # (Auto) Abs Immat Gran (auto) Absolute Neuts (auto) Absolute Nucleated RBC Nucleated RBC % (auto) Anion Gap Estim Creat Clear Calc Estimated GFR POC Glucose 194 H Fasting Glucose Calcium Total Bilirubin AST ALT Alkaline Phosphatase Total Protein Albumin Blood Type Antibody Screen Crossmatch Microbiology Microbiology Results: Microbiology 06/17/23 07:38 Blood Culture - Final Blood - Venous No growth after 5 days. 06/17/23 07:38 Blood Culture - Final Blood - Venous No growth after 5 days. Assessment and Plan (1) DVT of lower extremity, bilateral: Status: Acute (2) Anemia: Status: Acute (3) Type 2 diabetes mellitus: Status: Acute Plan 77 year old female with history non insulin dependent type 2 diabetes, htn, unspecified CHF, hx dvt not on ac, hypothyroidism admitted for hypotension and hypoglycemia. Records reviewed; recently at [facility] and received 8 units of packed red cells secondary to an AVM bleed. Workup at [facility] [place] consistent with acute on chronic/worsening lower extremity DVTs. 1.Acute on Chronic bilateral DVT H/o dvt s/p IVC filter previously on xarelto dc'd 3 weeks ago due to GI bleed; Xarelto restarted however hemoglobin trending downward...Xareltoi DCd -Seen by vascular; given progression of clot burden recommend resumption of Xarelto. Given hemoglobin 7; will transfuse 2 units with Lasix in between -follow daily CBC 2. Acute on chronic anemia; slight trend downward on Xarelto Recently seen at [facility] and transfused 8 units packed red cells. AVM by workup. -transfused 2 units of packed red cells with good response -follow daily CBCs; will follow 24-48 hours after CBC in a.m. to demonstrate stabilization on Xarelto 3.Non insulin dependent type 2 diabetes with hypoglycemia Sugars improved since admission. Tolerating diet without issues -acceptable control; Jardiance added back -lispro correctional scale -adjust as indicated 4.Acute UTI -completed course of Ceftin Xarelto Full code Requires ongoing hospitalization to complete blood transfusion and monitor stability a CBC given need for anticoagulation Quality Stroke Does the patient have a stroke diagnosis?: No VTE Prior VTE?: Yes VTE Risk Level:: Medical - moderate - high VTE Device Contraindication: Treatment Not Indicated VTE Drug Contraindication: N/A - Med Ordered
[2023-06-22 16:19] LABS: Glucose, Whole Blood 193 mg/dL (60-115)
[2023-06-22 21:19] LABS: Glucose, Whole Blood 185 mg/dL (60-115)
[2023-06-22] MEDS: Docusate Sodium 100 MG CAPSULE PO (22:04)
[2023-06-23] VITALS (7 sets, daily range): BP systolic 122–143; BP diastolic 55–65; PULSE 63–82; RESP 18–20; TEMP 36.1–36.7; O2SAT 92–96
[2023-06-23] MEDS: guaiFEN/Codeine SF 200/20/10ML 10 ML LIQUID PO ×4 (04:02→18:26)
[2023-06-23] MEDS: Levothyroxine Sodium 75 MCG TABLET PO (05:06)
[2023-06-23 06:14] LABS: MANUAL DIFF FLAG NO
[2023-06-23 06:37] LABS: Basophils Absolute Auto 0.1 X10*3/uL (0.0-0.2); Basophils Percent Auto 0.8 % (0-2); Eosinophils Absolute Auto 0.3 X10*3/uL (0.0-0.4); Eosinophils Percent Auto 3.9 % (0-4); Hematocrit 33.6 % (37.0-47.0); Hemoglobin 10.4 g/dl (12.0-16.0); Imm Gran Abs Auto 0.16 X10*3/uL (0.00-0.03); Imm Gran Pct Auto 1.9 % (0.0-0.4); Lymphocytes Absolute Auto 2.1 X10*3/uL (1.2-4.9); Lymphocytes Percent Auto 24.3 % (20-40); Mean Corpuscular Hemoglobin 29.3 pg (27.0-33.0); Mean Corpuscular Volume 94.6 fL (80.0-98.0); Mean Platelet Volume 10.7 fL (9.4-12.3); Monocytes Absolute Auto 0.8 X10*3/uL (0.1-1.2); Monocytes Percent Auto 9.9 % (2-11); NRBC Pct Auto 0.4 /100WBC (0.0-0.2); Neutrophils Percent Auto 59.2 % (45-73); Platelet Count 327 X10*3/uL (160-400); Red Blood Count 3.55 X10*6/uL (4.20-5.50); Red Cell Distribution Width 18.5 % (11.0-16.0); White Blood Count 8.5 X10*3/uL (4.8-10.8)
[2023-06-23 06:54] LABS: Alanine Aminotransferase 22 U/L (0-31); Albumin Level 3.1 g/dL (3.5-5.0); Alkaline Phosphatase 96 U/L (39-117); Anion Gap 12 (12-20); Aspartate Amino Transferase 21 U/L (5-31); Bilirubin Total 0.8 mg/dL (0.0-1.0); Blood Urea Nitrogen 18 mg/dL (9-16); Calcium 10.1 mg/dL (8.4-10.2); Carbon Dioxide 21 mmol/L (22-29); Chloride 112 mmol/L (96-108); Creatinine Clr Calc Pharmacy 70.6; Estimated Glomerular Filt Rate > 60; Glucose Fasting 159 mg/dL (60-99); Potassium 4.8 mmol/L (3.3-5.1); Sodium 140 mmol/L (135-145); Total Protein 6.5 g/dL (6.5-8.0)
[2023-06-23 07:33] LABS: Glucose, Whole Blood 156 mg/dL (60-115)
[2023-06-23] MEDS: Gabapentin 100 MG CAPSULE 200 MG PO ×2 (08:44→21:16)
[2023-06-23] MEDS: Empagliflozin 10 MG TABLET PO (08:44)
[2023-06-23] MEDS: polyethylene glycoL 3350 17 GM POWD.PACK PO (08:44)
[2023-06-23] MEDS: carvediloL 12.5 MG TABLET PO ×2 (08:44→21:15)
[2023-06-23] MEDS: Atorvastatin Calcium 40 MG TABLET PO (08:44)
[2023-06-23] MEDS: Insulin Lispro 100 UNIT/ML 3 ML VIAL SUBCUT ×3 (08:45→21:24)
[2023-06-23] MEDS: Benzonatate 100 MG CAPSULE 200 MG PO ×3 (08:45→21:16)
[2023-06-23] MEDS: Rivaroxaban 15 MG TABLET PO ×2 (08:45→16:54)
[2023-06-23] MEDS: Furosemide 20 MG TABLET PO (08:46)
[2023-06-23] MEDS: Nystatin Powder 15 GM BOTTLE 1 APPL TOPICAL ×4 (08:48→23:57)
[2023-06-23] MEDS: Ammonium Lactate 12 % Lotion 226 GM BOTTLE 1 APPL TOPICAL ×3 (08:48→21:16)
[2023-06-23] MEDS: Fluticasone Propionate Nasal 16 GM SPRAY 1 SPRAY NOSTRIL-B ×2 (08:50→21:16)
[2023-06-23] MEDS: 0.9 % Sodium Chloride Flush 3 ML SYRINGE IVFLUSH ×3 (08:52→21:23)
--- NOTE | 2023-06-23 11:49 | HO.PM.IMPN ---
Subjective Subjective Date of Service: 06/23/23 Interval History: No active bleeding overnight. Hemoglobin remained stable Review of Systems Denies chest pain Denies shortness of breath Denies nausea vomiting diarrhea Denies fever chills Physical Exam Vital Signs: Vital Signs: Last Vital Signs Temp 97.0 F 06/23/23 07:47 Pulse 82 06/23/23 07:47 Resp 20 06/23/23 07:47 BP 134/63 06/23/23 07:47 Pulse Ox 94 06/23/23 07:47 O2 Del Method Room Air 06/23/23 07:47 BMI result Body Mass Index 53.7 Const: Other: Awake alert no acute distress Resp: Other: Clear to auscultation bilaterally no rales rhonchi or wheezes Cardio: Other: No S4; positive S1-S2; no S3 murmurs rubs or gallops GI: Other: Soft nontender nondistended normoactive bowel sounds Extrem: Other: Bilateral edema Objective Data Active Medications Acetaminophen (Acetaminophen 325 Mg Tablet) 650 mg PO Q6H PRN PRN Reason: Pain, Mild (Pain Scale 1-3) Last Admin: 06/22/23 22:03 Dose: 650 mg Documented By: DEIDRE Atorvastatin Calcium (Atorvastatin Calcium 40 Mg Tablet) 40 mg PO DAILY [facility] Last Admin: 06/23/23 08:44 Dose: 40 mg Documented By: ESTEBAN Benzonatate (Benzonatate 100 Mg Capsule) 200 mg PO TID [facility] Last Admin: 06/23/23 08:45 Dose: 200 mg Documented By: ESTEBAN Carvedilol (Carvedilol 12.5 Mg Tablet) 12.5 mg PO BID [facility]; Protocol Last Admin: 06/23/23 08:44 Dose: 12.5 mg Documented By: ESTEBAN Dextrose (Dextrose 50 % 25 Gm/50 Ml Syringe) 25 gm IVPUSH Q15M PRN; Protocol PRN Reason: per Hypoglycemia Standing Ord. Docusate Sodium (Docusate Sodium 100 Mg Capsule) 100 mg PO BEDTIME [facility] Last Admin: 06/22/23 22:04 Dose: 100 mg Documented By: DEIDRE Empagliflozin (Empagliflozin 10 Mg Tablet) 10 mg PO DAILY [facility] Last Admin: 06/23/23 08:44 Dose: 10 mg Documented By: ESTEBAN Fluticasone Propionate (Fluticasone Propionate Nasal 16 Gm [place]) 1 spray NOSTRIL-B BID [facility] Last Admin: 06/23/23 08:50 Dose: 1 spray Documented By: ESTEBAN Furosemide (Furosemide 20 Mg Tablet) 20 mg PO DAILY [facility]; Protocol Last Admin: 06/23/23 08:46 Dose: 20 mg Documented By: ESTEBAN Gabapentin (Gabapentin 100 Mg Capsule) 200 mg PO BID [facility] Last Admin: 06/23/23 08:44 Dose: 200 mg Documented By: ESTEBAN Glucose (Glucose Gel 15 Gm Gel..Gram.) 15 gm PO Q15M PRN; Protocol PRN Reason: per Hypoglycemia Standing Ord. Guaifenesin/Codeine Phosphate (Guaifen/Codeine Sf 200/20/10ml 10 Ml Liquid) 10 ml PO Q6H PRN PRN Reason: cough Last Admin: 06/23/23 04:02 Dose: 10 ml Documented By: DEIDRE Guaifenesin/Codeine Phosphate (Guaifen/Codeine Sf 200/20/10ml 10 Ml Liquid) 10 ml PO Q4H PRN PRN Reason: cough Last Admin: 06/23/23 08:44 Dose: 10 ml Documented By: ESTEBAN Insulin Human Lispro (Insulin Lispro 100 Unit/Ml 3 Ml Vial) 0 unit SUBCUT QIDACHS [facility]; Protocol Last Admin: 06/23/23 08:45 Dose: 2 unit Documented By: ESTEBAN Lactic Acid (Ammonium Lactate 12 % Lotion 226 Gm Bottle) 1 appl TOPICAL TID [facility]; Protocol Last Admin: 06/23/23 08:48 Dose: 1 appl Documented By: ESTEBAN Levothyroxine Sodium (Levothyroxine Sodium 75 Mcg Tablet) 75 mcg PO DAILY@0600 [facility] Last Admin: 06/23/23 05:06 Dose: 75 mcg Documented By: DEIDRE Nystatin (Nystatin Powder 15 Gm Bottle) 1 appl TOPICAL QID [facility]; Protocol Last Admin: 06/23/23 08:48 Dose: 1 appl Documented By: ESTEBAN Ondansetron HCl (Ondansetron Hcl 4 Mg/2 Ml Vial) 4 mg IVPUSH Q8H PRN PRN Reason: Nausea and Vomiting Polyethylene Glycol (Polyethylene Glycol 3350 17 Gm Powd.Pack) 17 gm PO DAILY [facility] Last Admin: 06/23/23 08:44 Dose: 17 gm Documented By: ESTEBAN Rivaroxaban (Rivaroxaban 15 Mg Tablet) 15 mg PO BIDWM [facility] Last Admin: 06/23/23 08:45 Dose: 15 mg Documented By: ESTEBAN Senna (Sennosides 8.6 Mg Tablet) 17.2 mg PO BEDTIME PRN PRN Reason: Constipation Silver Sulfadiazine (Silver Sulfadiazine 1 % Cream 20 Gm Tube) 1 appl TOPICAL BID [facility] Last Admin: 06/23/23 08:58 Dose: Not Given Documented By: ESTEBAN Non-Admin Reason: Patient Refused Sodium Chloride (0.9 % Sodium Chloride Flush 3 Ml Syringe) 3 ml IVFLUSH QSHIFT [facility] Last Admin: 06/23/23 08:52 Dose: 3 ml Documented By: ESTEBAN Labs 06/23/23 05:48 06/23/23 05:48 Labs: Laboratory Results - last 24 hr 06/22/23 06/22/23 06/23/23 16:15 20:29 05:48 MCV 94.6 MCH 29.3 MCHC 31.0 RDW 18.5 H Plt Count 327 MPV 10.7 Immature Gran % (Auto) 1.9 H Neut % (Auto) 59.2 Lymph % (Auto) 24.3 [place] % (Auto) 9.9 Eos % (Auto) 3.9 Baso % (Auto) 0.8 Lymph # (Auto) 2.1 [place] # (Auto) 0.8 Eos # (Auto) 0.3 Baso # (Auto) 0.1 Abs Immat Gran (auto) 0.16 H Absolute Neuts (auto) 5.0 Absolute Nucleated RBC 0.030 H Nucleated RBC % (auto) 0.4 H Anion Gap 12 Estim Creat Clear Calc 70.6 Estimated GFR > 60 POC Glucose 193 H 185 H Fasting Glucose 159 H Calcium 10.1 Total Bilirubin 0.8 AST 21 ALT 22 Alkaline Phosphatase 96 Total Protein 6.5 Albumin 3.1 L 06/23/23 07:29 MCV MCH MCHC RDW Plt Count MPV Immature Gran % (Auto) Neut % (Auto) Lymph % (Auto) [place] % (Auto) Eos % (Auto) Baso % (Auto) Lymph # (Auto) [place] # (Auto) Eos # (Auto) Baso # (Auto) Abs Immat Gran (auto) Absolute Neuts (auto) Absolute Nucleated RBC Nucleated RBC % (auto) Anion Gap Estim Creat Clear Calc Estimated GFR POC Glucose 156 H Fasting Glucose Calcium Total Bilirubin AST ALT Alkaline Phosphatase Total Protein Albumin Microbiology Microbiology Results: Microbiology 06/17/23 07:38 Blood Culture - Final Blood - Venous No growth after 5 days. 06/17/23 07:38 Blood Culture - Final Blood - Venous No growth after 5 days. Assessment and Plan (1) Anemia: Status: Acute (2) DVT of lower extremity, bilateral: Status: Acute (3) Type 2 diabetes mellitus: Status: Acute Plan 77 year old female with history non insulin dependent type 2 diabetes, htn, unspecified CHF, hx dvt not on ac, hypothyroidism admitted for hypotension and hypoglycemia. Records reviewed; recently at [facility] and received 8 units of packed red cells secondary to an AVM bleed. Workup at [facility] [place] consistent with acute on chronic/worsening lower extremity DVTs. 1.Acute on Chronic bilateral DVT H/o dvt s/p IVC filter previously on xarelto dc'd 3 weeks ago due to GI bleed; Xarelto restarted however hemoglobin trending downward...Xareltoi DCd Seen by vascular; given progression of clot burden recommend resumption of Xarelto. -good response to transfusion; hemoglobin stable without active bleeding -follow daily CBC 2. Acute on chronic anemia; slight trend downward on Xarelto Recently seen at [facility] and transfused 8 units packed red cells. AVM by workup. -transfused 2 units of packed red cells with good response -follow daily CBCs; will follow 24-48 hours after CBC in a.m. to demonstrate stabilization on Xarelto -no active bleeding 3.Non insulin dependent type 2 diabetes with hypoglycemia Sugars improved since admission. Tolerating diet without issues -acceptable control; Jardiance added back -lispro correctional scale -adjust as indicated 4.Acute UTI -completed course of Ceftin Xarelto Full code Requires ongoing hospitalization to complete blood transfusion and monitor stability a CBC given need for anticoagulation Quality Stroke Does the patient have a stroke diagnosis?: No VTE Prior VTE?: Yes VTE Risk Level:: Medical - moderate - high VTE Device Contraindication: Treatment Not Indicated VTE Drug Contraindication: N/A - Med Ordered
[2023-06-23 12:44] LABS: Glucose, Whole Blood 150 mg/dL (60-115)
[2023-06-23 16:15] LABS: Glucose, Whole Blood 179 mg/dL (60-115)
[2023-06-23 21:13] LABS: Glucose, Whole Blood 218 mg/dL (60-115)
[2023-06-23] MEDS: Docusate Sodium 100 MG CAPSULE PO (21:16)
[2023-06-24 03:38] VITALS: BP 148/63; PULSE 69; RESP 20; TEMP 36.2; O2SAT 95
[2023-06-24] MEDS: Levothyroxine Sodium 75 MCG TABLET PO (05:28)
[2023-06-24 07:34] VITALS: BP 134/62; PULSE 79; RESP 18; TEMP 36.4; O2SAT 98
[2023-06-24 08:00] LABS: Glucose, Whole Blood 147 mg/dL (60-115)
[2023-06-24 08:16] LABS: MANUAL DIFF FLAG NO
[2023-06-24 08:18] LABS: Basophils Absolute Auto 0.1 X10*3/uL (0.0-0.2); Basophils Percent Auto 0.7 % (0-2); Eosinophils Absolute Auto 0.3 X10*3/uL (0.0-0.4); Eosinophils Percent Auto 3.5 % (0-4); Hematocrit 35.2 % (37.0-47.0); Imm Gran Abs Auto 0.13 X10*3/uL (0.00-0.03); Imm Gran Pct Auto 1.5 % (0.0-0.4); Lymphocytes Percent Auto 23.8 % (20-40); Mean Corpuscular HGB Conc 31.3 g/dl (31.0-35.0); Mean Corpuscular Hemoglobin 29.8 pg (27.0-33.0); Mean Corpuscular Volume 95.4 fL (80.0-98.0); Mean Platelet Volume 8.8 fL (9.4-12.3); Monocytes Absolute Auto 0.8 X10*3/uL (0.1-1.2); Monocytes Percent Auto 9.1 % (2-11); Neutrophils Absolute Auto 5.2 x10*3/uL (2.0-8.3); Neutrophils Percent Auto 61.4 % (45-73); Platelet Count 506 X10*3/uL (160-400); Red Blood Count 3.69 X10*6/uL (4.20-5.50); Red Cell Distribution Width 18.3 % (11.0-16.0); White Blood Count 8.5 X10*3/uL (4.8-10.8)
[2023-06-24 08:41] LABS: Alanine Aminotransferase 18 U/L (0-31); Albumin Level 3.2 g/dL (3.5-5.0); Alkaline Phosphatase 100 U/L (39-117); Anion Gap 10 (12-20); Aspartate Amino Transferase 14 U/L (5-31); Bilirubin Total 0.8 mg/dL (0.0-1.0); Blood Urea Nitrogen 15 mg/dL (9-16); Calcium 10.2 mg/dL (8.4-10.2); Carbon Dioxide 27 mmol/L (22-29); Chloride 108 mmol/L (96-108); Creatinine Clr Calc Pharmacy 71.5; Estimated Glomerular Filt Rate > 60; Glucose Fasting 136 mg/dL (60-99); Potassium 4.3 mmol/L (3.3-5.1); Sodium 141 mmol/L (135-145); Total Protein 6.7 g/dL (6.5-8.0)
[2023-06-24 11:30] VITALS: BP 125/50; PULSE 67; RESP 18; TEMP 36.5; O2SAT 95
[2023-06-24] MEDS: Atorvastatin Calcium 40 MG TABLET PO (11:52)
[2023-06-24] MEDS: carvediloL 12.5 MG TABLET PO (11:53)
[2023-06-24] MEDS: Gabapentin 100 MG CAPSULE 200 MG PO (11:53)
[2023-06-24] MEDS: Furosemide 20 MG TABLET PO (11:53)
[2023-06-24] MEDS: Rivaroxaban 15 MG TABLET PO (11:53)
[2023-06-24] MEDS: Empagliflozin 10 MG TABLET PO (11:53)
[2023-06-24] MEDS: Benzonatate 100 MG CAPSULE 200 MG PO (11:53)
[2023-06-24] MEDS: Ammonium Lactate 12 % Lotion 226 GM BOTTLE 1 APPL TOPICAL (11:54)
[2023-06-24] MEDS: 0.9 % Sodium Chloride Flush 3 ML SYRINGE IVFLUSH (11:54)
--- NOTE | 2023-06-24 11:54 | P.DS_ITS ---
DS: Providers Provider Date of Service: 06/24/23 Date of admission: 06/17/23 15:12 Date of discharge: 06/24/23 Primary care physician: Maricel Lance MD Consults: 06/17/23 14:33 Consult to Vascular Surgery Routine Consulting Provider: [facility] Vascular Services Reason for consultation: bilateral janine VILLATORO 06/18/23 08:59 Consult to Wound Care Routine Reason for consultation: Deep tissue injury to sacrum DS: Diagnosis Discharge Diagnosis (1) Anemia: Status: Acute (2) DVT of lower extremity, bilateral: Status: Acute (3) Type 2 diabetes mellitus: Status: Acute DS: Summary Hospital Course Hospital Course: 77 year old female with history non insulin dependent type 2 diabetes, htn, u nspecified CHF, hx dvt (s/p IVC filter previously on xarelto dc'd 3 weeks ago d/t gi bleed), hypothyroidism presented to the ED earlier today for evaluation of hypoglyemia. Was seen in our ED on 06/13 diagnosed with UTI and prescribed cefuroxime (UC grew ecoli sensitive to ctx). States last A1c was 6.1% and had glucose of 46 this am, given oral dextrose by EMS and transferred to ED. She reports was hospitalized at [facility] about 3 weeks ago with LGIB, required 8 units prbc transfusion, and underwent colonoscopy. Pt reports AVM found. Records requested but unavailable at time of exam. No further GI bleeding per patient since discharge. Did have recurrence of diarrhea x4 this morning while in ED. Reports dyspnea sitting up and with exertion, but no orthopnea. Also reporting lightheadedness and mild chest discomfort, but no palpitations. In ED, initially hypotensive and bp remains soft despite 2.5L IV NS with bp on admission 92/35. There is a leukocytosis 12.3, H/H 8.3/26.8%. Creat 1.4, baselin e 1.0. BUN 37, sodium 131 lytes otherwise normal. AST 56, ALT 32. Trop below detectable limites, BNP 119. albumin 2.9. UA unremarkable. Stool occult blood negative. Cdiff negative. CXR unremarkable. Venous duplex pending. EKF shows NSR, rate [address]/twave abn, no marcos/depression. 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 Keller he recommend to continue anticoagulation and recommend outpatient follow-up with him. -will DC IV heparin and place patient on Xarelto 15 mg b.i.d. times 21 days followed by 20 mg by mouth daily -received total of 3 units packed red cells during hospitalization and monitored 48 hours after completion. Hemoglobin continues to rise at the time of discharge. At this point in time, patient is medically acceptable for discharge home to follow-up with PCP as scheduled. Time Attestation Discharge Coordination Time: discharge time of ____ minutes Quality: Safe Use of Opioids Does Pt have an Active Cancer Diagnosis on the Problem List?: No Quality: Stroke Does the patient have a stroke diagnosis?: No Physical Exam Vital Signs: Vital Signs: Last Vital Signs Temp 97.7 F 06/24/23 11:30 Pulse 67 06/24/23 11:30 Resp 18 06/24/23 11:30 BP 125/50 L 06/24/23 11:30 Pulse Ox 95 06/24/23 11:30 O2 Del Method Room Air 06/24/23 11:30 BMI result Body Mass Index 53.7 Const: Other: Awake alert no acute distress Resp: Other: Clear to auscultation bilaterally no rales rhonchi or wheezes Cardio: Other: No S4; positive S1-S2; no S3 murmurs rubs or gallops GI: Other: Soft nontender nondistended normoactive bowel sounds Extrem: Other: Bilateral edema DS: Data Data Completed and Pending Labs on day of discharge: Laboratory Results - last 24 hr 06/23/23 06/23/23 06/23/23 12:40 16:07 20:57 WBC RBC Hgb Hct MCV MCH MCHC RDW Plt Count MPV Immature Gran % (Auto) Neut % (Auto) Lymph % (Auto) [place] % (Auto) Eos % (Auto) Baso % (Auto) Lymph # (Auto) [place] # (Auto) Eos # (Auto) Baso # (Auto) Abs Immat Gran (auto) Absolute Neuts (auto) Absolute Nucleated RBC Nucleated RBC % (auto) Sodium Potassium Chloride Carbon Dioxide Anion Gap BUN Creatinine Estim Creat Clear Calc Estimated GFR POC Glucose 150 H 179 H 218 H Fasting Glucose Calcium Total Bilirubin AST ALT Alkaline Phosphatase Total Protein Albumin 06/24/23 06/24/23 07:43 07:57 WBC 8.5 RBC 3.69 L Hgb 11.0 L Hct 35.2 L MCV 95.4 MCH 29.8 MCHC 31.3 RDW 18.3 H Plt Count 506 H D MPV 8.8 L Immature Gran % (Auto) 1.5 H Neut % (Auto) 61.4 Lymph % (Auto) 23.8 [place] % (Auto) 9.1 Eos % (Auto) 3.5 Baso % (Auto) 0.7 Lymph # (Auto) 2.0 [place] # (Auto) 0.8 Eos # (Auto) 0.3 Baso # (Auto) 0.1 Abs Immat Gran (auto) 0.13 H Absolute Neuts (auto) 5.2 Absolute Nucleated RBC 0.000 Nucleated RBC % (auto) 0.0 Sodium 141 Potassium 4.3 Chloride 108 Carbon Dioxide 27 Anion Gap 10 L BUN 15 Creatinine 0.79 Estim Creat Clear Calc 71.5 Estimated GFR > 60 POC Glucose 147 H Fasting Glucose 136 H Calcium 10.2 Total Bilirubin 0.8 AST 14 ALT 18 Alkaline Phosphatase 100 Total Protein 6.7 Albumin 3.2 L Discharge Plan Discharge Anticipated Discharge Date/Time: 06/24/23 11:44 Patient Disposition: Home Health Service Discharge Diagnosis: Anemia Referrals: Maricel Lance MD [Primary Care Provider] - 1 Week Discharge Medications: New codeine-guaifenesin 10-100 mg/5 mL Liquid 10 ml PO Q4H PRN (Reason: cough) Qty: 180 0RF Xarelto 15 mg Tablet 15 mg PO BIDWM Qty: 60 0RF Continued atorvastatin 40 mg tablet 40 mg PO DAILY silver sulfadiazine [SSD] 1 % cream 1 appl topical BID carvedilol 25 mg tablet 25 mg PO BID ammonium lactate 12 % lotion 1 appl topical TID acetaminophen 500 mg tablet 500 mg PO BID PRN (Reason: Pain, Mild) levothyroxine 75 mcg tablet 75 mcg PO DAILY@0530 losartan 25 mg tablet 25 mg PO DAILY furosemide 20 mg tablet 20 mg PO DAILY gabapentin 100 mg capsule 200 mg PO BID nystatin 100,000 unit/gram powder 400,000 unit topical QID Jardiance 10 mg tablet 10 mg PO DAILY Discontinued cefuroxime axetil 250 mg tablet 250 mg PO BID glimepiride 2 mg tablet 2 mg PO DAILY Discharge Orders: Discharge Order (Routine); Ordered 06/24/23 Ordered By: Klever Cobos Diet: Advance to usual diet Activity on Discharge: As tolerated Stand Alone Forms: Patient Portal Discharge page Care Plan Goals: Take Xarelto 15 mg 1 tablet twice daily for 20 days followed by Xarelto 20 mg by mouth daily Diabetes with hypoglycemia resolved Health Concerns: Resume all other pre-hospital medications Plan of Treatment: Follow-up with PCP as scheduled Assessment: See discharge summary
[2023-06-24] MEDS: Fluticasone Propionate Nasal 16 GM SPRAY 1 SPRAY NOSTRIL-B (11:55)
[2023-06-24] MEDS: Nystatin Powder 15 GM BOTTLE 1 APPL TOPICAL ×2 (11:55→14:28)
[2023-06-24] MEDS: polyethylene glycoL 3350 17 GM POWD.PACK PO (11:56)
[2023-06-24] MEDS: Silver Sulfadiazine 1 % Cream 20 GM TUBE 1 APPL TOPICAL (11:56)
[2023-06-24] MEDS: guaiFEN/Codeine SF 200/20/10ML 10 ML LIQUID PO (12:03)
[2023-06-24 12:14] LABS: Glucose, Whole Blood 172 mg/dL (60-115)
--- NOTE | 2023-06-24 12:54 | MHC.CM.PN ---
Patient has been medically cleared for dc to home today, with services. Patient is active with [id number], who has been notified of today's dc. IMM addressed with Patient at bedside and the original was given to her and a copy has been placed on the chart. Patient will dc to home today at 3 PM, via [facility] (auth # for transport is [id number]).
[2023-06-24] MEDS: Insulin Lispro 100 UNIT/ML 3 ML VIAL SUBCUT (14:29)
== END 2023-06-24 14:45 | disposition home health service (06) | DRG 300 ==
LOC: HO.ED 11:50 → HO.EDOVER 14:05 → HO.IMC 19:55
PROVIDERS: Hospitalist; Student in an Organized Health Care Education/Training Program; Admitting Provider Physician Assistant; Emergency Provider Emergency Medicine; PCP Internal Medicine; Visit Provider Hospitalist
DX: I82.413 Acute embolism and thrombosis of femoral vein, bilateral (principal); N17.9 Acute kidney failure, unspecified; Z68.43 Body mass index [BMI] 50.0-59.9, adult; N39.0 Urinary tract infection, site not specified; D64.9 Anemia, unspecified; K59.00 Constipation, unspecified; E03.9 Hypothyroidism, unspecified; B96.20 Unspecified Escherichia coli [E. coli] as the cause of diseases classified elsewhere; E66.01 Morbid (severe) obesity due to excess calories; E11.649 Type 2 diabetes mellitus with hypoglycemia without coma; I50.9 Heart failure, unspecified; I11.0 Hypertensive heart disease with heart failure; I95.9 Hypotension, unspecified; Z86.718 Personal history of other venous thrombosis and embolism; Z79.890 Hormone replacement therapy; Z79.899 Other long term (current) drug therapy
CPT/HCPCS: 36415; 71045; 71275; 80048; 80053; 81001; 82272; 82947; 83605; 83880; 84443; 84484; 85025; 85027; 85610; 85730; 86850; 86900; 86901; 86923; 87040; 87493; 87507; 93005; 93970; 97162; 97530; 99285; J1200; J1644; J1720; J1940; P9016; P9047; Q9967

== ENCOUNTER → 2023-06-17 11:32 | Outpatient (BNV) | payer OTHER, SELFPAY | PROVIDERS: Emergency Provider Emergency Medicine; PCP Internal Medicine; Visit Provider Internal Medicine | DX: R07.9 Chest pain, unspecified (principal) | CPT/HCPCS: 93010 ==

== ENCOUNTER → 2023-06-17 15:12 | Outpatient (BNV) | payer OTHER, SELFPAY | PROVIDERS: Admitting Provider Physician Assistant; Emergency Provider Emergency Medicine; PCP Internal Medicine; Visit Provider Surgery Vascular Surgery | DX: I82.413 Acute embolism and thrombosis of femoral vein, bilateral (principal) | CPT/HCPCS: 99222; 99232 ==

== ENCOUNTER → 2023-06-17 15:12 | Outpatient (BNV) | payer OTHER, SELFPAY | PROVIDERS: Admitting Provider Physician Assistant; Emergency Provider Emergency Medicine; PCP Internal Medicine; Visit Provider Hospitalist | DX: I82.413 Acute embolism and thrombosis of femoral vein, bilateral (principal); E11.9 Type 2 diabetes mellitus without complications; D64.9 Anemia, unspecified | CPT/HCPCS: 99223; 99233; 99238 ==